=== PATIENT | male | born 1950 | race Caucasian/White ===

== ENCOUNTER 2016-05-22 12:35 | Inpatient (IN) | payer OTHER ==
[2016-05-22] MEDS ORDERED: NS 1000 ML 1,000 ML ONE (12:53)
[2016-05-22] MEDS ORDERED: NS 1000 ML 1,000 ML IV ONE (13:15)
[2016-05-22] MEDS ORDERED: ZOFRAN INJ 4 MG VIAL IVP ONE (13:26)
--- NOTE | 2016-05-22 13:28 | DR.GENAD ---
HPI - PCP Primary Care Physician: OUT OF TOWN - HPI Comment HPI Comment: 65 y/o with end stage metastatic prostate cancer has not been able to eat in over a week due to n/v and come in w/weakness and feeling poorly; he drove here from [place] after getting home from a bucket list cruise earlier this week and just cannot get to feeling better. He has been going downhill since January and last saw Oncology at [facility] last month where he was told nothing else could be done; he would like to be hydrated and sent home with hospice. - Complaint/Symptoms Chief Complaint:: I THINK I AM DEHYDRATED. HAS NOT ATE FOOD IN ABOUT A WEEK DUE TO NAUSEA Self Treatment fo Chief Complaint: TAKING SIPS OF FLUIDS - Source History Provided: Patient, Family Member - Mode of Arrival Mode of Arrival: Stretcher - Timing Onset of Chief Complaint: 05/20/16 PMH - PMH Past Medical History: Yes Past Medical History: Dyslipidemia, Hypertension Past Medical History Comment: PROSTATE/RECTAL CANCER Past Surgical History: Yes Past Surgical History Comment: PORT CATH TO RIGHT CW AND DRAIN TO RIGHT SIDE OF ABD - Family History History of Family Medical Conditions: Yes Family Medical History: Diabetes Mellitus, Cancer, [place], Coronary Artery Disease, Heart Failure, Sudden Cardiac , Hypertension - Social History Type of Tobacco Use: None Does any household member use tobacco: No Alcohol Use: None Do you use any recreational Drugs:: No Lives With: Alone Lives Where: Home - infectious screening In the last 2 months have you had wt loss of >10#?: NO Have you had fever, night sweats or hemotysis?: No Have you traveled outside the country in the last 6 months?: No Isolation: Standard ROS - Review of Systems Constitutional: Malaise, Weakness, Fatigue, Loss of Appetite Eyes: No Symptoms Reported ENTM: No Symptoms Reported Respiratoy: No Symptoms Reported Cardiovascular: No Symptoms Reported Gastrointestinal/Abdominal: See HPI Genitourinary: No Symptoms Reported Neurological: No Symptoms Reported Musculoskeletal: No Symptoms Reported Integumentary: No Symptoms Reported Hematologic/Lymphatic: No Symptoms Reported Endocrine: No Symptoms Reported PE - Vital Signs Vitals: Temperature 98.6 F Pulse Rate [Left] 99 Pulse Rate 98 Respiratory Rate 14 Blood Pressure [Right Arm] 112/71 Blood Pressure [Left Arm] 110/69 Blood Pressure 111/74 O2 Sat by Pulse Oximetry 97 - General Limitations: No Limitations General Appearance: Alert, In No Apparent Distress - ENT ENT Exam: Mucous Membranes Moist - Neck Neck Exam: Normal Inspection, Full ROM - Chest Chest Inspection: Normal Inspection - Respiratory Respiratory Exam: Normal Lung Sounds Bilat Respiratory Exam: Bilateral Clear to Auscultation - Cardiovascular Cardiovascular Exam: Regular Rate - Abdominal Exam Abdominal Exam: Normal Inspection, Normal Bowel Sounds, Soft - Extremities Extremities Exam: Normal Inspection - Neurologic Neurological Exam: Alert, Oriented X3, CN II-XII Intact - Psychiatric Psychiatric Exam: Flat Affect - Skin Skin Exam: Warm, Dry Course - Reevaluation 1st: Improved ROR - Labs Reviewed Result Diagrams: 05/24/16 05:26 05/24/16 05:26 Laboratory: WBC 15.5 X10^3/uL (3.6-10.0) H 05/22/16 13:08 RBC 3.96 X10^6/uL (4.7-6.0) L 05/22/16 13:08 Hgb 11.7 g/dL (13.5-18.0) L 05/22/16 13:08 Hct 34.7 % (42.0-54.0) L 05/22/16 13:08 MCV 87.7 fL (80.0-100.0) 05/22/16 13:08 MCH 29.6 pg (27.0-34.0) 05/22/16 13:08 MCHC 33.7 g/dL (33.0-35.0) 05/22/16 13:08 RDW 18.7 % (11.6-16.5) H 05/22/16 13:08 Plt Count 232 X10^3/uL (150.0-450.0) 05/22/16 13:08 MPV 8.3 fL (7.4-11.0) 05/22/16 13:08 Neut % 76.4 % (42.0-75.0) H 05/22/16 13:08 Lymph % 19.0 % (21.0-51.0) L 05/22/16 13:08 [place] % 4.5 % (0.0-13.0) 05/22/16 13:08 Eos % 0.1 % (0.9-2.9) L 05/22/16 13:08 Baso % 0 % (0.2-1.0) L 05/22/16 13:08 Neut # 11.9 x10^3/uL (2.2-4.8) H 05/22/16 13:08 Lymph # 3.0 X10^3/uL (1.3-2.9) H 05/22/16 13:08 [place] # 0.7 x10^3/uL (0.3-0.8) 05/22/16 13:08 Eos # 0.0 x10^3/uL (0.0-0.2) 05/22/16 13:08 Baso # 0.0 X10^3/uL (0.0-0.1) 05/22/16 13:08 Absolute Nucleated RBC 0.1 /100WBC 05/22/16 13:08 Sodium 130 mmol/L (136-145) L 05/22/16 13:08 Corrected Sodium TNP 05/22/16 13:08 Potassium 6.4 mmol/L (3.5-5.1) H* 05/22/16 13:08 Chloride 98 mmol/L (98-107) 05/22/16 13:08 Carbon Dioxide 18.2 mmol/L (21-32) L 05/22/16 13:08 BUN 63 mg/dL (7-18) H 05/22/16 13:08 Creatinine 3.47 mg/dL (0.70-1.30) H 05/22/16 13:08 Est GFR (MDRD) Af Amer 23 (>60) L 05/22/16 13:08 Est GFR (MDRD) Non-Af 19 (>60) L 05/22/16 13:08 Glucose 99 mg/dL (65-99) 05/22/16 13:08 Calcium 8.2 mg/dL (8.5-10.1) L 05/22/16 13:08 Corrected Calcium 9.8 mg/dL (8.5-10.1) 05/22/16 13:08 Total Bilirubin 0.30 mg/dL (0.2-1.0) 05/22/16 13:08 AST 21 Units/L (15-37) 05/22/16 13:08 ALT 11 Units/L (12-78) L 05/22/16 13:08 Alkaline Phosphatase 137 Units/L (46-116) H 05/22/16 13:08 Total Protein 5.8 g/dL (6.4-8.2) L 05/22/16 13:08 Albumin 2.0 g/dL (3.4-5.0) L 05/22/16 13:08 Globulin 3.8 g/dL (2.5-4.5) 05/22/16 13:08 Albumin/Globulin Ratio 0.5 Ratio (1.1-2.1) L 05/22/16 13:08 - Diagnosis Discharge Problem: Dehydration, Hyperkalemia, Prostate cancer metastatic to large intestine ARF (acute renal failure) Qualifiers: Acute renal failure type: unspecified Qualified Code(s): N17.9 - Acute kidney failure, unspecified - Discharge Plan Disposition: ADMITTED INPATIENT Condition: Stable - Follow ups/Referrals - Instructions
[2016-05-22] MEDS ORDERED: ZOFRAN INJ 4 MG VIAL ONE (13:29)
[2016-05-22 13:40] LABS: BASOPHILS % (AUTO) 0 % (0.2-1.0); EOSINOPHILS % (AUTO) 0.1 % (0.9-2.9); HEMATOCRIT 34.7 % (42.0-54.0); HEMOGLOBIN 11.7 g/dL (13.5-18.0); MEAN CORPUSCULAR HEMOGLOBIN 29.6 pg (27.0-34.0); MEAN CORPUSCULAR HGB CONC 33.7 g/dL (33.0-35.0); MEAN CORPUSCULAR VOLUME 87.7 fL (80.0-100.0); MEAN PLATELET VOLUME 8.3 fL (7.4-11.0); MONOCYTES # (AUTO) 0.7 x10^3/uL (0.3-0.8); MONOCYTES % (AUTO) 4.5 % (0.0-13.0); NEUTROPHILS # (AUTO) 11.9 x10^3/uL (2.2-4.8); NEUTROPHILS % (AUTO) 76.4 % (42.0-75.0); PLATELET COUNT 232 X10^3/uL (150.0-450.0); RED BLOOD COUNT 3.96 X10^6/uL (4.7-6.0); RED CELL DISTRIBUTION WIDTH 18.7 % (11.6-16.5); WHITE BLOOD COUNT 15.5 X10^3/uL (3.6-10.0)
[2016-05-22 13:43] LABS: BLOOD UREA NITROGEN 63 mg/dL (7-18); CALCIUM 8.2 mg/dL (8.5-10.1); CARBON DIOXIDE 18.2 mmol/L (21-32); CHLORIDE 98 mmol/L (98-107); CREATININE 3.47 mg/dL (0.70-1.30); GLUCOSE 99 mg/dL (65-99); SODIUM 130 mmol/L (136-145); eGFR BLACK RACES 23 (>60); eGFR NON BLACK RACES 19 (>60)
[2016-05-22 13:48] LABS: ALANINE AMINOTRANSFERASE 11 Units/L (12-78); ALKALINE PHOSPHATASE 137 Units/L (46-116); ASPARTATE AMINO TRANSFERASE 21 Units/L (15-37); COR CA(FOR HYPOALB) 9.8 mg/dL (8.5-10.1); TOTAL PROTEIN 5.8 g/dL (6.4-8.2)
[2016-05-22] MEDS ORDERED: KAYEXALATE PO ONE (14:23)
[2016-05-22] MEDS ORDERED: DEMEROL INJ IVP PRN (15:51)
[2016-05-22] MEDS: ZOFRAN INJ 4 MG VIAL IVP PRN (17:34)
[2016-05-22] MEDS: NS 1000 ML 1,000 ML IV SCH ×2 (17:36→23:57)
[2016-05-23 06:05] LABS: BASOPHILS % (AUTO) 0.2 % (0.2-1.0); EOSINOPHILS # (AUTO) 0.1 x10^3/uL (0.0-0.2); EOSINOPHILS % (AUTO) 0.6 % (0.9-2.9); HEMATOCRIT 30.9 % (42.0-54.0); HEMOGLOBIN 10.6 g/dL (13.5-18.0); LYMPHOCYTES # (AUTO) 2.1 X10^3/uL (1.3-2.9); MEAN CORPUSCULAR HEMOGLOBIN 30.3 pg (27.0-34.0); MEAN CORPUSCULAR HGB CONC 34.3 g/dL (33.0-35.0); MEAN CORPUSCULAR VOLUME 88.3 fL (80.0-100.0); MEAN PLATELET VOLUME 8.4 fL (7.4-11.0); MONOCYTES # (AUTO) 0.6 x10^3/uL (0.3-0.8); MONOCYTES % (AUTO) 5.2 % (0.0-13.0); NEUTROPHILS # (AUTO) 9.3 x10^3/uL (2.2-4.8); PLATELET COUNT 186 X10^3/uL (150.0-450.0); RED CELL DISTRIBUTION WIDTH 18.3 % (11.6-16.5); WHITE BLOOD COUNT 12.1 X10^3/uL (3.6-10.0)
[2016-05-23 06:07] LABS: ALANINE AMINOTRANSFERASE 11 Units/L (12-78); ALBUMIN 1.6 g/dL (3.4-5.0); ALKALINE PHOSPHATASE 129 Units/L (46-116); ASPARTATE AMINO TRANSFERASE 23 Units/L (15-37); BLOOD UREA NITROGEN 60 mg/dL (7-18); CALCIUM 7.6 mg/dL (8.5-10.1); CARBON DIOXIDE 17.6 mmol/L (21-32); CHLORIDE 101 mmol/L (98-107); COR CA(FOR HYPOALB) 9.5 mg/dL (8.5-10.1); CREATININE 3.02 mg/dL (0.70-1.30); GLUCOSE 102 mg/dL (65-99); SODIUM 130 mmol/L (136-145); eGFR BLACK RACES 27 (>60); eGFR NON BLACK RACES 22 (>60)
[2016-05-23] MEDS ORDERED: BUTT CREAM (COMPOUND) ONE (09:56)
[2016-05-23] MEDS ORDERED: NYSTATIN POWDER ONE (09:57)
[2016-05-23] MEDS: ZOFRAN INJ 4 MG VIAL IVP PRN ×2 (12:31→16:36)
[2016-05-23] MEDS: NS 1000 ML 1,000 ML IV SCH (12:36)
[2016-05-23] MEDS: BUTT CREAM (COMPOUND) TOP SCH ×2 (14:30→21:00)
[2016-05-23] MEDS ORDERED: NS 1000 ML 1,000 ML IV ONE (14:33)
[2016-05-23] MEDS: NYSTATIN POWDER TOP SCH (21:00)
[2016-05-24] MEDS: NS 1000 ML 1,000 ML IV PRN ×2 (02:04→20:28)
[2016-05-24 06:22] LABS: BASOPHILS % (AUTO) 0.2 % (0.2-1.0); EOSINOPHILS # (AUTO) 0.1 x10^3/uL (0.0-0.2); EOSINOPHILS % (AUTO) 0.8 % (0.9-2.9); HEMOGLOBIN 10.4 g/dL (13.5-18.0); LYMPHOCYTES # (AUTO) 1.9 X10^3/uL (1.3-2.9); LYMPHOCYTES % (AUTO) 18.5 % (21.0-51.0); MEAN CORPUSCULAR HEMOGLOBIN 30.8 pg (27.0-34.0); MEAN CORPUSCULAR HGB CONC 34.6 g/dL (33.0-35.0); MEAN CORPUSCULAR VOLUME 88.9 fL (80.0-100.0); MEAN PLATELET VOLUME 8.3 fL (7.4-11.0); MONOCYTES # (AUTO) 0.5 x10^3/uL (0.3-0.8); MONOCYTES % (AUTO) 5.1 % (0.0-13.0); NEUTROPHILS # (AUTO) 7.6 x10^3/uL (2.2-4.8); NEUTROPHILS % (AUTO) 75.4 % (42.0-75.0); PLATELET COUNT 177 X10^3/uL (150.0-450.0); RED BLOOD COUNT 3.38 X10^6/uL (4.7-6.0); RED CELL DISTRIBUTION WIDTH 19.5 % (11.6-16.5)
[2016-05-24 06:24] LABS: ALANINE AMINOTRANSFERASE 9 Units/L (12-78); ALBUMIN 1.5 g/dL (3.4-5.0); ALKALINE PHOSPHATASE 142 Units/L (46-116); ASPARTATE AMINO TRANSFERASE 21 Units/L (15-37); BLOOD UREA NITROGEN 51 mg/dL (7-18); CALCIUM 7.5 mg/dL (8.5-10.1); CARBON DIOXIDE 15.7 mmol/L (21-32); CHLORIDE 101 mmol/L (98-107); COR CA(FOR HYPOALB) 9.5 mg/dL (8.5-10.1); CREATININE 2.55 mg/dL (0.70-1.30); GLUCOSE 95 mg/dL (65-99); SODIUM 129 mmol/L (136-145); TOTAL PROTEIN 4.7 g/dL (6.4-8.2); eGFR BLACK RACES 33 (>60); eGFR NON BLACK RACES 27 (>60)
[2016-05-24] MEDS: BUTT CREAM (COMPOUND) TOP SCH ×3 (06:34→21:00)
[2016-05-24 09:47] VITALS: BMI 25.9
[2016-05-24] MEDS: ZOFRAN INJ 4 MG VIAL IVP PRN ×2 (10:07→23:28)
[2016-05-24] MEDS: NYSTATIN POWDER TOP SCH ×2 (10:08→21:00)
--- NOTE | 2016-05-24 11:09 | RAD ---
HISTORY: Dehydration Study: AP chest obtained 6:06 a.m. Comparison: Findings: Right subcutaneous injection port overlies the right upper lung field tip of the catheter is at the junction of the superior vena cava and right atrium. A left lower lobe lung mass measures 2.2 cm in diameter. Possible right lower lung mass measuring 1.5 cm in diameter. The trachea is midline . Ther e is no widening or shift of mediastinum. The cardiac silhouette appears within normal limits. The c ostophrenic angles are sharp and both diaphragms are adequately maintained. The lungs are adequately aerated. Osseous structures are within normal limits for the patient's age There is no evidence of active inflammatory disease. IMPRESSION: 1. Heart normal size bilateral lower lobe lung masses. Right subcutaneous injection port catheter ti p in adequate position. No evidence of pneumonia . Reported By:
[2016-05-25] MEDS: BUTT CREAM (COMPOUND) TOP SCH ×3 (05:26→21:08)
[2016-05-25 06:32] LABS: BASOPHILS % (AUTO) 0.3 % (0.2-1.0); EOSINOPHILS # (AUTO) 0.1 x10^3/uL (0.0-0.2); EOSINOPHILS % (AUTO) 0.9 % (0.9-2.9); HEMATOCRIT 30.2 % (42.0-54.0); HEMOGLOBIN 10.3 g/dL (13.5-18.0); LYMPHOCYTES # (AUTO) 1.4 X10^3/uL (1.3-2.9); LYMPHOCYTES % (AUTO) 15.8 % (21.0-51.0); MEAN CORPUSCULAR HEMOGLOBIN 30.4 pg (27.0-34.0); MEAN CORPUSCULAR HGB CONC 34.1 g/dL (33.0-35.0); MONOCYTES # (AUTO) 0.5 x10^3/uL (0.3-0.8); MONOCYTES % (AUTO) 5.8 % (0.0-13.0); NEUTROPHILS # (AUTO) 6.8 x10^3/uL (2.2-4.8); NEUTROPHILS % (AUTO) 77.2 % (42.0-75.0); PLATELET COUNT 170 X10^3/uL (150.0-450.0); RED CELL DISTRIBUTION WIDTH 20.3 % (11.6-16.5); WHITE BLOOD COUNT 8.8 X10^3/uL (3.6-10.0)
[2016-05-25 06:36] LABS: BLOOD UREA NITROGEN 45 mg/dL (7-18); CARBON DIOXIDE 16.3 mmol/L (21-32); CHLORIDE 101 mmol/L (98-107); CREATININE 2.44 mg/dL (0.70-1.30); GLUCOSE 107 mg/dL (65-99); SODIUM 128 mmol/L (136-145); eGFR BLACK RACES 34 (>60); eGFR NON BLACK RACES 28 (>60)
[2016-05-25 06:37] LABS: ALANINE AMINOTRANSFERASE 10 Units/L (12-78); ALBUMIN 1.5 g/dL (3.4-5.0); ALKALINE PHOSPHATASE 153 Units/L (46-116); ASPARTATE AMINO TRANSFERASE 20 Units/L (15-37); CALCIUM 7.5 mg/dL (8.5-10.1); COR CA(FOR HYPOALB) 9.5 mg/dL (8.5-10.1); TOTAL PROTEIN 4.6 g/dL (6.4-8.2)
[2016-05-25 06:59] LABS: ANISOCYTOSIS 1+; PLATELET MORPHOLOGY COMMENT NORMAL (NORMAL)
[2016-05-25] MEDS: ZOFRAN INJ 4 MG VIAL IVP PRN ×3 (07:52→15:40)
[2016-05-25] MEDS: NYSTATIN POWDER TOP SCH ×2 (10:38→21:08)
--- NOTE | 2016-05-25 10:47 | DR.H&P ---
H&P - History & Physical for Day of: H&P Date: 05/22/16 - Chief Complaint Chief Complaint: intractable nausea and vomiting, generalized weakness - Allergies Allergies/Adverse Reactions: Allergies Allergy/AdvReac Type Severity Reaction Status Date / Time Hydralazine Allergy Verified 05/22/16 12:43 Penicillins Allergy Verified 05/22/16 12:43 - History of Present Illness History of Present Illness: The patient is a 65-year-old white male who presented to the [facility] emergency room complaining of marked generalized weakness and intractable nausea and vomiting. Patient has a history of metastatic prostate cancer as well as metastatic colorectal cancer. The patient's clinical status has been markedly declining over the last several weeks. Patient has previously completed chemotherapy and states that his oncology physicians have told him that there was no further treatments for his condition and that he is considered to be terminal. The patient just got back from a cruise which she attempted to go on with family members and apparently was getting very sick even before departure and reportedly stayed in his cabin with very little by mouth intake throughout the cruise. The patient was noted to have a markedly elevated BUN/creatinine as well as hyperkalemia. 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 Patient's subsequent been admitted for further workup. - Past Medical History Past Medical History: Dyslipidemia, Hypertension Additional Medical History: 1. End-stage, metastatic colorectal cancer. 2. Metastatic prostate cancer - Family History Family Medical History: Diabetes Mellitus, Cancer, [place], Coronary Artery Disease, Heart Failure, Sudden Cardiac , Hypertension - Social History Does patient currently use any type of tobacco product: No Have you used tobacco products in the last 12 months: No Type of Tobacco Use: None Does any household member use tobacco: No Alcohol Use: None Drug Use: None - Review of Systems Constitutional: See HPI Eyes: No Symptoms Reported ENT: No Symptoms Reported Respiratory: No Symptoms Reported Cardiovascular: No Symptoms Reported Gastrointestinal: See HPI Genitourinary: No Symptoms Reported Musculoskeletal: No Symptoms Reported Skin: No Symptoms Reported - Physical Exam Vital Signs: Temperature 97.5 F Pulse Rate [Right Brachial] 92 Pulse Rate [Left] 91 Respiratory Rate 19 Blood Pressure [Right Arm] 107/74 Blood Pressure [Left Arm] 95/59 O2 Sat by Pulse Oximetry 92 Oriented: Normal Eyes: Normal Ear: Normal Nose: Normal Throat: Normal Respiratory: Clear Throughout Cardiovascular: Normal : Normal Auscultation: Bowel Sounds: Normal Palpation: Other (distended, consistent with ascites) Tenderness: Diffuse Skin: Normal Musculoskeletal: Normal Psychiatric: Depression Mood Description: Withdrawn Speech Pattern: Clear - Assessment/Plan (1) ARF (acute renal failure) Qualifiers: Acute renal failure type: unspecified Qualified Code(s): N17.9 - Acute kidney failure, unspecified Status: Acute Plan: 1. Admit for further workup. 2. Kayexalate as ordered. 3. Aggressive IV fluid hydration. 4. Continue current IV antibiotics. 5. Continue daily paracentesis drainage as per home regimen. 6. Continue home medications. 7. Blood cultures 2 from separate sites. 8. UA C&S. 9. Ascitic fluid for Gram stain, [employer]. 10. Advance diet as tolerated. 11. Repeat CMP and CBC in a.m. 12. Further orders to chart (2) Hyperkalemia Status: Acute Plan: As above. (3) Dehydration Status: Acute Plan: As above. (4) Metastatic colorectal cancer Status: Acute Plan: As above. (5) Prostate cancer metastatic to intrapelvic lymph node Status: Acute Plan: As above. (6) Malignant ascites Status: Acute Plan: As above.
--- NOTE | 2016-05-25 10:58 | PCM.PROG ---
Progress Note - Progress Note for Day of Date: 05/23/16 - Subjective Subjective: The patient is a 65-year-old white male who was admitted to be [facility] a 05/22/2016 secondary to intractable nausea and vomiting, profound dehydration with acute renal failure and hyperkalemia. Patient states that his symptoms have minimally improved since admission. Patient continues to complain of severe nausea. Should be noted that the patient has metastatic prostate cancer, and end-stage metastatic colorectal cancer which has been determined to be terminal with no further treatment recommended. - Past Medical Family Social History Past Med/Fam/Surg Hx: No changes since H&P Allergies: Allergies Hydralazine Allergy (Verified 05/22/16 12:43) Penicillins Allergy (Verified 05/22/16 12:43) - Review of Systems ROS: No change since H&P - Vital Signs and I&O's Vital Signs: Temperature 97.5 F Pulse Rate [Right Brachial] 92 Pulse Rate [Left] 91 Respiratory Rate 19 Blood Pressure [Right Arm] 107/74 Blood Pressure [Left Arm] 95/59 O2 Sat by Pulse Oximetry 92 Intake and Output: Intake & Output 05/22/16 05/23/16 05/24/16 05/25/16 11:59 11:59 11:59 11:59 Intake Total 1741 2145 1320 Output Total 450 1800 Balance 1741 1695 -480 - Physical Exam Oriented: Normal Eyes: Normal Ear: Normal Nose: Normal Throat: Normal Respiratory: Normal Cardiovascular: Normal : Normal Auscultation: Bowel Sounds: Normal Tenderness: Diffuse Skin: Normal Musculoskeletal: Normal Psychiatric: Depression Mood Description: Withdrawn Affect: Flat Speech Pattern: Clear - Laboratory and Diagnostics Result Diagrams: 05/25/16 06:00 05/25/16 06:00 Labs: 05/23/16 10:44 Peritoneal Fluid Gram Stain - Final Laboratory WBC 8.8 X10^3/uL (3.6-10.0) 05/25/16 06:00 RBC 3.40 X10^6/uL (4.7-6.0) L 05/25/16 06:00 Hgb 10.3 g/dL (13.5-18.0) L 05/25/16 06:00 Hct 30.2 % (42.0-54.0) L 05/25/16 06:00 MCV 89.0 fL (80.0-100.0) 05/25/16 06:00 MCH 30.4 pg (27.0-34.0) 05/25/16 06:00 MCHC 34.1 g/dL (33.0-35.0) 05/25/16 06:00 RDW 20.3 % (11.6-16.5) H 05/25/16 06:00 Plt Count 170 X10^3/uL (150.0-450.0) 05/25/16 06:00 Plt Count Comment Adequate (ADEQUATE) 05/25/16 06:00 MPV 8.0 fL (7.4-11.0) 05/25/16 06:00 Neut % 77.2 % (42.0-75.0) H 05/25/16 06:00 Lymph % 15.8 % (21.0-51.0) L 05/25/16 06:00 [place] % 5.8 % (0.0-13.0) 05/25/16 06:00 Eos % 0.9 % (0.9-2.9) 05/25/16 06:00 Baso % 0.3 % (0.2-1.0) 05/25/16 06:00 Neut # 6.8 x10^3/uL (2.2-4.8) H 05/25/16 06:00 Lymph # 1.4 X10^3/uL (1.3-2.9) 05/25/16 06:00 [place] # 0.5 x10^3/uL (0.3-0.8) 05/25/16 06:00 Eos # 0.1 x10^3/uL (0.0-0.2) 05/25/16 06:00 Baso # 0.0 X10^3/uL (0.0-0.1) 05/25/16 06:00 Absolute Nucleated RBC 0.0 /100WBC 05/25/16 06:00 Plt Morphology Comment Normal (NORMAL) 05/25/16 06:00 RBC Morphology Abnormal (NORMAL) 05/25/16 06:00 Anisocytosis 1+ A 05/25/16 06:00 Sodium 128 mmol/L (136-145) L 05/25/16 06:00 Corrected Sodium TNP 05/25/16 06:00 Potassium 5.1 mmol/L (3.5-5.1) 05/25/16 06:00 Chloride 101 mmol/L (98-107) 05/25/16 06:00 Carbon Dioxide 16.3 mmol/L (21-32) L 05/25/16 06:00 BUN 45 mg/dL (7-18) H 05/25/16 06:00 Creatinine 2.44 mg/dL (0.70-1.30) H 05/25/16 06:00 Est GFR (MDRD) Af Amer 34 (>60) L 05/25/16 06:00 Est GFR (MDRD) Non-Af 28 (>60) L 05/25/16 06:00 Glucose 107 mg/dL (65-99) H 05/25/16 06:00 Calcium 7.5 mg/dL (8.5-10.1) L 05/25/16 06:00 Corrected Calcium 9.5 mg/dL (8.5-10.1) 05/25/16 06:00 Total Bilirubin 0.20 mg/dL (0.2-1.0) 05/25/16 06:00 AST 20 Units/L (15-37) 05/25/16 06:00 ALT 10 Units/L (12-78) L 05/25/16 06:00 Alkaline Phosphatase 153 Units/L (46-116) H 05/25/16 06:00 Total Protein 4.6 g/dL (6.4-8.2) L 05/25/16 06:00 Albumin 1.5 g/dL (3.4-5.0) L 05/25/16 06:00 Globulin 3.1 g/dL (2.5-4.5) 05/25/16 06:00 Albumin/Globulin Ratio 0.5 Ratio (1.1-2.1) L 05/25/16 06:00 - Plan (1) ARF (acute renal failure) Status: Acute Qualifiers: Acute renal failure type: unspecified Qualified Code(s): N17.9 - Acute kidney failure, unspecified Plan: 1. CMP and CBC today. 2. D/C Kayexalate. 3. Aggressive IV fluid hydration. 4. Continue current IV antibiotics. 5. Continue daily paracentesis drainage as per home regimen. 6. Continue home medications. 7. Blood cultures 2 from separate sites pending. 8. UA C&S pending. 9. Ascitic fluid for Gram stain, [employer]. 10. Advance diet as tolerated. 11. Repeat CMP and CBC in a.m. 12. Further orders to chart (2) Hyperkalemia Status: Acute Plan: As above. (3) Dehydration Status: Acute Plan: As above. (4) Metastatic colorectal cancer Status: Acute Plan: As above. (5) Prostate cancer metastatic to intrapelvic lymph node Status: Acute Plan: As above. (6) Malignant ascites Status: Acute Plan: As above.
--- NOTE | 2016-05-25 11:01 | PCM.PROG ---
Progress Note - Progress Note for Day of Date: 05/24/16 - Subjective Subjective: The patient is a 65-year-old white male who was admitted to be [facility] a 05/22/2016 secondary to intractable nausea and vomiting, profound dehydration with acute renal failure and hyperkalemia. Patient states that his symptoms have minimally improved since admission. Patient continues to complain of severe nausea which has minimally improved. Should be noted that the patient has metastatic prostate cancer, and end-stage metastatic colorectal cancer which has been determined to be terminal with no further treatment recommended. - Past Medical Family Social History Past Med/Fam/Surg Hx: No changes since H&P Allergies: Allergies Hydralazine Allergy (Verified 05/22/16 12:43) Penicillins Allergy (Verified 05/22/16 12:43) - Review of Systems ROS: No change since H&P - Vital Signs and I&O's Vital Signs: Temperature 97.5 F Pulse Rate [Right Brachial] 92 Pulse Rate [Left] 91 Respiratory Rate 19 Blood Pressure [Right Arm] 107/74 Blood Pressure [Left Arm] 95/59 O2 Sat by Pulse Oximetry 92 Intake and Output: Intake & Output 05/22/16 05/23/16 05/24/16 05/25/16 11:59 11:59 11:59 11:59 Intake Total 1741 2145 1320 Output Total 450 1800 Balance 1741 1695 -480 - Physical Exam Oriented: Normal Eyes: Normal Ear: Normal Nose: Normal Throat: Normal Respiratory: Normal Cardiovascular: Normal : Normal Auscultation: Bowel Sounds: Normal Tenderness: Diffuse Skin: Normal Musculoskeletal: Normal Psychiatric: Depression Mood Description: Withdrawn Affect: Flat Speech Pattern: Clear - Laboratory and Diagnostics Result Diagrams: 05/25/16 06:00 05/25/16 06:00 Labs: 05/23/16 10:44 Peritoneal Fluid Gram Stain - Final Laboratory WBC 8.8 X10^3/uL (3.6-10.0) 05/25/16 06:00 RBC 3.40 X10^6/uL (4.7-6.0) L 05/25/16 06:00 Hgb 10.3 g/dL (13.5-18.0) L 05/25/16 06:00 Hct 30.2 % (42.0-54.0) L 05/25/16 06:00 MCV 89.0 fL (80.0-100.0) 05/25/16 06:00 MCH 30.4 pg (27.0-34.0) 05/25/16 06:00 MCHC 34.1 g/dL (33.0-35.0) 05/25/16 06:00 RDW 20.3 % (11.6-16.5) H 05/25/16 06:00 Plt Count 170 X10^3/uL (150.0-450.0) 05/25/16 06:00 Plt Count Comment Adequate (ADEQUATE) 05/25/16 06:00 MPV 8.0 fL (7.4-11.0) 05/25/16 06:00 Neut % 77.2 % (42.0-75.0) H 05/25/16 06:00 Lymph % 15.8 % (21.0-51.0) L 05/25/16 06:00 [place] % 5.8 % (0.0-13.0) 05/25/16 06:00 Eos % 0.9 % (0.9-2.9) 05/25/16 06:00 Baso % 0.3 % (0.2-1.0) 05/25/16 06:00 Neut # 6.8 x10^3/uL (2.2-4.8) H 05/25/16 06:00 Lymph # 1.4 X10^3/uL (1.3-2.9) 05/25/16 06:00 [place] # 0.5 x10^3/uL (0.3-0.8) 05/25/16 06:00 Eos # 0.1 x10^3/uL (0.0-0.2) 05/25/16 06:00 Baso # 0.0 X10^3/uL (0.0-0.1) 05/25/16 06:00 Absolute Nucleated RBC 0.0 /100WBC 05/25/16 06:00 Plt Morphology Comment Normal (NORMAL) 05/25/16 06:00 RBC Morphology Abnormal (NORMAL) 05/25/16 06:00 Anisocytosis 1+ A 05/25/16 06:00 Sodium 128 mmol/L (136-145) L 05/25/16 06:00 Corrected Sodium TNP 05/25/16 06:00 Potassium 5.1 mmol/L (3.5-5.1) 05/25/16 06:00 Chloride 101 mmol/L (98-107) 05/25/16 06:00 Carbon Dioxide 16.3 mmol/L (21-32) L 05/25/16 06:00 BUN 45 mg/dL (7-18) H 05/25/16 06:00 Creatinine 2.44 mg/dL (0.70-1.30) H 05/25/16 06:00 Est GFR (MDRD) Af Amer 34 (>60) L 05/25/16 06:00 Est GFR (MDRD) Non-Af 28 (>60) L 05/25/16 06:00 Glucose 107 mg/dL (65-99) H 05/25/16 06:00 Calcium 7.5 mg/dL (8.5-10.1) L 05/25/16 06:00 Corrected Calcium 9.5 mg/dL (8.5-10.1) 05/25/16 06:00 Total Bilirubin 0.20 mg/dL (0.2-1.0) 05/25/16 06:00 AST 20 Units/L (15-37) 05/25/16 06:00 ALT 10 Units/L (12-78) L 05/25/16 06:00 Alkaline Phosphatase 153 Units/L (46-116) H 05/25/16 06:00 Total Protein 4.6 g/dL (6.4-8.2) L 05/25/16 06:00 Albumin 1.5 g/dL (3.4-5.0) L 05/25/16 06:00 Globulin 3.1 g/dL (2.5-4.5) 05/25/16 06:00 Albumin/Globulin Ratio 0.5 Ratio (1.1-2.1) L 05/25/16 06:00 - Plan (1) ARF (acute renal failure) Status: Acute Qualifiers: Acute renal failure type: unspecified Qualified Code(s): N17.9 - Acute kidney failure, unspecified Plan: 1. CMP and CBC today. 2. Advance diet as tolerated. 3. Aggressive IV fluid hydration. 4. Continue current IV antibiotics. 5. Continue daily paracentesis drainage as per home regimen. 6. Continue home medications. 7. Blood cultures 2 from separate sites pending. 8. UA C&S pending. 9. Ascitic fluid for Gram stain, [employer]. 10. Repeat CMP and CBC in a.m. 11. Further orders to chart (2) Hyperkalemia Status: Acute Plan: As above. (3) Dehydration Status: Acute Plan: As above. (4) Metastatic colorectal cancer Status: Acute Plan: As above. (5) Prostate cancer metastatic to intrapelvic lymph node Status: Acute Plan: As above. (6) Malignant ascites Status: Acute Plan: As above.
[2016-05-25] MEDS ORDERED: PHENERGAN INJ 25 MG IV PRN (16:50)
[2016-05-26] MEDS: BUTT CREAM (COMPOUND) TOP SCH ×3 (05:54→22:55)
[2016-05-26] MEDS: NS 1000 ML 1,000 ML IV PRN (05:55)
[2016-05-26 06:19] LABS: BASOPHILS % (AUTO) 0.2 % (0.2-1.0); EOSINOPHILS # (AUTO) 0.1 x10^3/uL (0.0-0.2); EOSINOPHILS % (AUTO) 1.1 % (0.9-2.9); HEMATOCRIT 32.5 % (42.0-54.0); HEMOGLOBIN 11.1 g/dL (13.5-18.0); LYMPHOCYTES # (AUTO) 1.9 X10^3/uL (1.3-2.9); LYMPHOCYTES % (AUTO) 18.5 % (21.0-51.0); MEAN CORPUSCULAR HEMOGLOBIN 30.6 pg (27.0-34.0); MEAN CORPUSCULAR HGB CONC 34.1 g/dL (33.0-35.0); MEAN CORPUSCULAR VOLUME 89.6 fL (80.0-100.0); MONOCYTES # (AUTO) 0.5 x10^3/uL (0.3-0.8); MONOCYTES % (AUTO) 5.4 % (0.0-13.0); NEUTROPHILS # (AUTO) 7.5 x10^3/uL (2.2-4.8); NEUTROPHILS % (AUTO) 74.8 % (42.0-75.0); PLATELET COUNT 193 X10^3/uL (150.0-450.0); RED BLOOD COUNT 3.62 X10^6/uL (4.7-6.0); RED CELL DISTRIBUTION WIDTH 20.5 % (11.6-16.5)
[2016-05-26 06:31] LABS: ALBUMIN 1.5 g/dL (3.4-5.0); ALKALINE PHOSPHATASE 167 Units/L (46-116); ASPARTATE AMINO TRANSFERASE 21 Units/L (15-37); BLOOD UREA NITROGEN 41 mg/dL (7-18); CALCIUM 7.7 mg/dL (8.5-10.1); CARBON DIOXIDE 16.7 mmol/L (21-32); CHLORIDE 101 mmol/L (98-107); COR CA(FOR HYPOALB) 9.7 mg/dL (8.5-10.1); CREATININE 2.38 mg/dL (0.70-1.30); GLUCOSE 83 mg/dL (65-99); SODIUM 129 mmol/L (136-145); TOTAL PROTEIN 4.9 g/dL (6.4-8.2); eGFR BLACK RACES 35 (>60); eGFR NON BLACK RACES 29 (>60)
[2016-05-26 06:40] LABS: ALANINE AMINOTRANSFERASE 11 Units/L (12-78)
[2016-05-26 06:58] LABS: ANISOCYTOSIS 1+; PLATELET MORPHOLOGY COMMENT NORMAL (NORMAL)
--- NOTE | 2016-05-26 08:56 | PCM.PROG ---
Progress Note - Progress Note for Day of Date: 05/25/16 - Subjective Subjective: The patient is a 65-year-old white male who was admitted to be [facility] a 05/22/2016 secondary to intractable nausea and vomiting, profound dehydration with acute renal failure and hyperkalemia. Patient states that his symptoms have minimally improved since admission. Patient continues to complain of severe nausea which has minimally improved. Should be noted that the patient has metastatic prostate cancer, and end-stage metastatic colorectal cancer which has been determined to be terminal with no further treatment recommended. Pt continues with hyponatremia, will continue IV hydration and symptomatic management - Past Medical Family Social History Past Med/Fam/Surg Hx: No changes since H&P Allergies: Allergies Hydralazine Allergy (Verified 05/22/16 12:43) Penicillins Allergy (Verified 05/22/16 12:43) - Review of Systems ROS: No change since H&P - Vital Signs and I&O's Vital Signs: Temperature 98.3 F Pulse Rate [Right Brachial] 94 Pulse Rate [Left] 111 Respiratory Rate 18 Blood Pressure [Right Arm] 103/67 Blood Pressure [Left Arm] 99/62 O2 Sat by Pulse Oximetry 94 Intake and Output: Intake & Output 05/23/16 05/24/16 05/25/16 05/26/16 11:59 11:59 11:59 11:59 Intake Total 1741 2145 1320 1640 Output Total 450 1800 350 Balance 1741 1695 -480 1290 - Physical Exam Oriented: Normal Eyes: Normal Ear: Normal Nose: Normal Throat: Normal Respiratory: Diminished Cardiovascular: Normal : Normal Auscultation: Bowel Sounds: Normal Tenderness: Diffuse Skin: Normal Musculoskeletal: Normal Psychiatric: Depression Mood Description: Withdrawn Affect: Flat Speech Pattern: Clear - Laboratory and Diagnostics Result Diagrams: 05/26/16 05:40 05/26/16 05:40 Labs: 05/23/16 10:44 Peritoneal Fluid - Preliminary 05/23/16 10:44 Peritoneal Fluid Gram Stain - Final Laboratory WBC 10.0 X10^3/uL (3.6-10.0) 05/26/16 05:40 RBC 3.62 X10^6/uL (4.7-6.0) L 05/26/16 05:40 Hgb 11.1 g/dL (13.5-18.0) L 05/26/16 05:40 Hct 32.5 % (42.0-54.0) L 05/26/16 05:40 MCV 89.6 fL (80.0-100.0) 05/26/16 05:40 MCH 30.6 pg (27.0-34.0) 05/26/16 05:40 MCHC 34.1 g/dL (33.0-35.0) 05/26/16 05:40 RDW 20.5 % (11.6-16.5) H 05/26/16 05:40 Plt Count 193 X10^3/uL (150.0-450.0) 05/26/16 05:40 Plt Count Comment Adequate (ADEQUATE) 05/26/16 05:40 MPV 8.0 fL (7.4-11.0) 05/26/16 05:40 Neut % 74.8 % (42.0-75.0) 05/26/16 05:40 Lymph % 18.5 % (21.0-51.0) L 05/26/16 05:40 [place] % 5.4 % (0.0-13.0) 05/26/16 05:40 Eos % 1.1 % (0.9-2.9) 05/26/16 05:40 Baso % 0.2 % (0.2-1.0) 05/26/16 05:40 Neut # 7.5 x10^3/uL (2.2-4.8) H 05/26/16 05:40 Lymph # 1.9 X10^3/uL (1.3-2.9) 05/26/16 05:40 [place] # 0.5 x10^3/uL (0.3-0.8) 05/26/16 05:40 Eos # 0.1 x10^3/uL (0.0-0.2) 05/26/16 05:40 Baso # 0.0 X10^3/uL (0.0-0.1) 05/26/16 05:40 Absolute Nucleated RBC 0.0 /100WBC 05/26/16 05:40 Plt Morphology Comment Normal (NORMAL) 05/26/16 05:40 RBC Morphology Abnormal (NORMAL) 05/26/16 05:40 Anisocytosis 1+ A 05/26/16 05:40 Sodium 129 mmol/L (136-145) L 05/26/16 05:40 Corrected Sodium TNP 05/26/16 05:40 Potassium 5.3 mmol/L (3.5-5.1) H 05/26/16 05:40 Chloride 101 mmol/L (98-107) 05/26/16 05:40 Carbon Dioxide 16.7 mmol/L (21-32) L 05/26/16 05:40 BUN 41 mg/dL (7-18) H 05/26/16 05:40 Creatinine 2.38 mg/dL (0.70-1.30) H 05/26/16 05:40 Est GFR (MDRD) Af Amer 35 (>60) L 05/26/16 05:40 Est GFR (MDRD) Non-Af 29 (>60) L 05/26/16 05:40 Glucose 83 mg/dL (65-99) 05/26/16 05:40 Calcium 7.7 mg/dL (8.5-10.1) L 05/26/16 05:40 Corrected Calcium 9.7 mg/dL (8.5-10.1) 05/26/16 05:40 Total Bilirubin 0.30 mg/dL (0.2-1.0) 05/26/16 05:40 AST 21 Units/L (15-37) 05/26/16 05:40 ALT 11 Units/L (12-78) L 05/26/16 05:40 Alkaline Phosphatase 167 Units/L (46-116) H 05/26/16 05:40 Total Protein 4.9 g/dL (6.4-8.2) L 05/26/16 05:40 Albumin 1.5 g/dL (3.4-5.0) L 05/26/16 05:40 Globulin 3.4 g/dL (2.5-4.5) 05/26/16 05:40 Albumin/Globulin Ratio 0.4 Ratio (1.1-2.1) L 05/26/16 05:40 - Plan (1) ARF (acute renal failure) Status: Acute Qualifiers: Acute renal failure type: unspecified Qualified Code(s): N17.9 - Acute kidney failure, unspecified Plan: 1. CMP and CBC today. 2. Advance diet as tolerated. 3. Aggressive IV fluid hydration. 4. Continue current IV antibiotics. 5. Continue daily paracentesis drainage as per home regimen. 6. Continue home medications (2) Ascites Status: Acute Qualifiers: Ascites type: A Plan: Continue daily paracentesis drainage as per home regimen (3) Dehydration Status: Acute Plan: As above. (4) Metastatic colorectal cancer Status: Acute Plan: As above. 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
[2016-05-26] MEDS: NYSTATIN POWDER TOP SCH ×2 (09:00→20:58)
[2016-05-26] MEDS: ZOFRAN INJ 4 MG VIAL IVP PRN ×3 (12:00→15:57)
[2016-05-26] MEDS: NEURONTIN CAP 300 MG PO SCH ×2 (15:55→23:08)
[2016-05-26] MEDS ORDERED: LEVSIN ORAL DROPS PO PRN (19:03)
--- NOTE | 2016-05-26 19:05 | PCM.PROG ---
Progress Note - Progress Note for Day of Date: 05/26/16 - Subjective Subjective: The patient is a 65-year-old white male who was admitted to be [facility] a 05/22/2016 secondary to intractable nausea and vomiting, profound dehydration with acute renal failure and hyperkalemia. Patient states that his symptoms have minimally improved since admission. Patient continues to complain of severe nausea which has minimally improved. Should be noted that the patient has metastatic prostate cancer, and end-stage metastatic colorectal cancer which has been determined to be terminal with no further treatment recommended. Pt continues with hyponatremia, will continue IV hydration and symptomatic management. Pt co increase lower extremity cramping today and gas. - Past Medical Family Social History Past Med/Fam/Surg Hx: No changes since H&P Allergies: Allergies Hydralazine Allergy (Verified 05/22/16 12:43) Penicillins Allergy (Verified 05/22/16 12:43) - Review of Systems ROS: No change since H&P - Vital Signs and I&O's Vital Signs: Temperature 98 F Pulse Rate [Right Brachial] 102 Pulse Rate [Left] 111 Respiratory Rate 20 Blood Pressure [Right Arm] 101/73 Blood Pressure [Left Arm] 99/62 O2 Sat by Pulse Oximetry 94 Intake and Output: Intake & Output 05/24/16 05/25/16 05/26/16 05/27/16 11:59 11:59 11:59 11:59 Intake Total 2145 1320 1640 240 Output Total 450 1800 350 200 Balance 1695 -480 1290 40 - Physical Exam Oriented: Normal Eyes: Normal Ear: Normal Nose: Normal Throat: Normal Respiratory: Diminished Cardiovascular: Normal : Normal Auscultation: Bowel Sounds: Normal Tenderness: Diffuse Skin: Decreased Turgur Musculoskeletal: Leg Psychiatric: Depression Mood Description: Withdrawn Affect: Flat Speech Pattern: Clear - Laboratory and Diagnostics Result Diagrams: 05/26/16 05:40 05/26/16 05:40 Labs: 05/23/16 10:44 Peritoneal Fluid - Preliminary 05/23/16 10:44 Peritoneal Fluid Gram Stain - Final Laboratory WBC 10.0 X10^3/uL (3.6-10.0) 05/26/16 05:40 RBC 3.62 X10^6/uL (4.7-6.0) L 05/26/16 05:40 Hgb 11.1 g/dL (13.5-18.0) L 05/26/16 05:40 Hct 32.5 % (42.0-54.0) L 05/26/16 05:40 MCV 89.6 fL (80.0-100.0) 05/26/16 05:40 MCH 30.6 pg (27.0-34.0) 05/26/16 05:40 MCHC 34.1 g/dL (33.0-35.0) 05/26/16 05:40 RDW 20.5 % (11.6-16.5) H 05/26/16 05:40 Plt Count 193 X10^3/uL (150.0-450.0) 05/26/16 05:40 Plt Count Comment Adequate (ADEQUATE) 05/26/16 05:40 MPV 8.0 fL (7.4-11.0) 05/26/16 05:40 Neut % 74.8 % (42.0-75.0) 05/26/16 05:40 Lymph % 18.5 % (21.0-51.0) L 05/26/16 05:40 [place] % 5.4 % (0.0-13.0) 05/26/16 05:40 Eos % 1.1 % (0.9-2.9) 05/26/16 05:40 Baso % 0.2 % (0.2-1.0) 05/26/16 05:40 Neut # 7.5 x10^3/uL (2.2-4.8) H 05/26/16 05:40 Lymph # 1.9 X10^3/uL (1.3-2.9) 05/26/16 05:40 [place] # 0.5 x10^3/uL (0.3-0.8) 05/26/16 05:40 Eos # 0.1 x10^3/uL (0.0-0.2) 05/26/16 05:40 Baso # 0.0 X10^3/uL (0.0-0.1) 05/26/16 05:40 Absolute Nucleated RBC 0.0 /100WBC 05/26/16 05:40 Plt Morphology Comment Normal (NORMAL) 05/26/16 05:40 RBC Morphology Abnormal (NORMAL) 05/26/16 05:40 Anisocytosis 1+ A 05/26/16 05:40 Sodium 129 mmol/L (136-145) L 05/26/16 05:40 Corrected Sodium TNP 05/26/16 05:40 Potassium 5.3 mmol/L (3.5-5.1) H 05/26/16 05:40 Chloride 101 mmol/L (98-107) 05/26/16 05:40 Carbon Dioxide 16.7 mmol/L (21-32) L 05/26/16 05:40 BUN 41 mg/dL (7-18) H 05/26/16 05:40 Creatinine 2.38 mg/dL (0.70-1.30) H 05/26/16 05:40 Est GFR (MDRD) Af Amer 35 (>60) L 05/26/16 05:40 Est GFR (MDRD) Non-Af 29 (>60) L 05/26/16 05:40 Glucose 83 mg/dL (65-99) 05/26/16 05:40 Calcium 7.7 mg/dL (8.5-10.1) L 05/26/16 05:40 Corrected Calcium 9.7 mg/dL (8.5-10.1) 05/26/16 05:40 Total Bilirubin 0.30 mg/dL (0.2-1.0) 05/26/16 05:40 AST 21 Units/L (15-37) 05/26/16 05:40 ALT 11 Units/L (12-78) L 05/26/16 05:40 Alkaline Phosphatase 167 Units/L (46-116) H 05/26/16 05:40 Total Protein 4.9 g/dL (6.4-8.2) L 05/26/16 05:40 Albumin 1.5 g/dL (3.4-5.0) L 05/26/16 05:40 Globulin 3.4 g/dL (2.5-4.5) 05/26/16 05:40 Albumin/Globulin Ratio 0.4 Ratio (1.1-2.1) L 05/26/16 05:40 - Plan (1) ARF (acute renal failure) Status: Acute Qualifiers: Acute renal failure type: unspecified Qualified Code(s): N17.9 - Acute kidney failure, unspecified Plan: 1. CMP and CBC today. 2. Advance diet as tolerated. 3. Aggressive IV fluid hydration. 4. Continue current IV antibiotics. 5. Continue daily paracentesis drainage as per home regimen. 6. Continue home medications (2) Ascites Status: Acute Qualifiers: Ascites type: A Plan: Continue daily paracentesis drainage as per home regimen (3) Dehydration Status: Acute Plan: As above. (4) Metastatic colorectal cancer Status: Acute Plan: As above. 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
[2016-05-27 05:18] LABS: ALBUMIN 1.5 g/dL (3.4-5.0); ALKALINE PHOSPHATASE 162 Units/L (46-116); ASPARTATE AMINO TRANSFERASE 16 Units/L (15-37); BLOOD UREA NITROGEN 40 mg/dL (7-18); CALCIUM 7.7 mg/dL (8.5-10.1); CARBON DIOXIDE 16.8 mmol/L (21-32); CHLORIDE 100 mmol/L (98-107); COR CA(FOR HYPOALB) 9.7 mg/dL (8.5-10.1); GLUCOSE 90 mg/dL (65-99); SODIUM 129 mmol/L (136-145); TOTAL PROTEIN 4.8 g/dL (6.4-8.2); eGFR BLACK RACES 37 (>60); eGFR NON BLACK RACES 30 (>60)
[2016-05-27 05:21] LABS: BASOPHILS % (AUTO) 0.2 % (0.2-1.0); EOSINOPHILS # (AUTO) 0.2 x10^3/uL (0.0-0.2); EOSINOPHILS % (AUTO) 1.6 % (0.9-2.9); HEMATOCRIT 31.5 % (42.0-54.0); HEMOGLOBIN 10.7 g/dL (13.5-18.0); LYMPHOCYTES # (AUTO) 2.1 X10^3/uL (1.3-2.9); MEAN CORPUSCULAR HEMOGLOBIN 30.4 pg (27.0-34.0); MEAN CORPUSCULAR HGB CONC 33.8 g/dL (33.0-35.0); MEAN CORPUSCULAR VOLUME 89.7 fL (80.0-100.0); MEAN PLATELET VOLUME 8.2 fL (7.4-11.0); MONOCYTES # (AUTO) 0.6 x10^3/uL (0.3-0.8); NEUTROPHILS # (AUTO) 6.6 x10^3/uL (2.2-4.8); NEUTROPHILS % (AUTO) 70.2 % (42.0-75.0); PLATELET COUNT 196 X10^3/uL (150.0-450.0); RED BLOOD COUNT 3.51 X10^6/uL (4.7-6.0); RED CELL DISTRIBUTION WIDTH 20.6 % (11.6-16.5); WHITE BLOOD COUNT 9.5 X10^3/uL (3.6-10.0)
[2016-05-27 05:37] LABS: ALANINE AMINOTRANSFERASE 10 Units/L (12-78)
[2016-05-27] MEDS: BUTT CREAM (COMPOUND) TOP SCH ×3 (06:03→21:00)
[2016-05-27 06:04] LABS: ANISOCYTOSIS 1+; PLATELET MORPHOLOGY COMMENT NORMAL (NORMAL)
--- NOTE | 2016-05-27 06:55 | RAD ---
HISTORY: Abdominal pain, metastatic cancer Study: KUB Comparison: November 25, 2014 Findings: Evaluation of the abdomen demonstrates a normal bowel gas pattern. No pathological soft tissue mass or calcification can be observed. The bony structures are grossly intact. Tubing overlies the righ t abdomen and terminates over the pelvis. IMPRESSION: 1. No evidence for acute abdominal pathology identified. Reported By:
[2016-05-27] MEDS: NEURONTIN CAP 300 MG PO SCH ×2 (09:33→15:35)
[2016-05-27] MEDS: NYSTATIN POWDER TOP SCH ×2 (09:34→21:00)
[2016-05-27] MEDS: PHENERGAN INJ 25 MG IVP PRN (11:08)
[2016-05-27] MEDS: TIMOPTIC 0.5% EYE DROPS EACHEYE SCH (15:24)
[2016-05-27] MEDS: ZOFRAN INJ 4 MG VIAL IVP PRN (15:35)
[2016-05-27] MEDS: NS 1000 ML 1,000 ML IV PRN (17:34)
--- NOTE | 2016-05-27 18:52 | PCM.PROG ---
Progress Note - Progress Note for Day of Date: 05/27/16 - Subjective Subjective: The patient is a 65-year-old white male who was admitted to be [facility] a 05/22/2016 secondary to intractable nausea and vomiting, profound dehydration with acute renal failure and hyperkalemia. Patient states that his symptoms have minimally improved since admission. Patient continues to complain of severe nausea which has minimally improved. Should be noted that the patient has metastatic prostate cancer, and end-stage metastatic colorectal cancer which has been determined to be terminal with no further treatment recommended. Pt continues with hyponatremia, will continue IV hydration and symptomatic management. Pt co improved nausea and appetite today. Continue with generalized weakness. - Past Medical Family Social History Past Med/Fam/Surg Hx: No changes since H&P Allergies: Allergies Hydralazine Allergy (Verified 05/22/16 12:43) Penicillins Allergy (Verified 05/22/16 12:43) - Review of Systems ROS: No change since H&P - Vital Signs and I&O's Vital Signs: Temperature 98.4 F Pulse Rate [Right Brachial] 97 Pulse Rate [Left] 111 Respiratory Rate 20 Blood Pressure [Right Arm] 120/78 Blood Pressure [Left Arm] 99/62 O2 Sat by Pulse Oximetry 96 Intake and Output: Intake & Output 05/25/16 05/26/16 05/27/16 05/28/16 11:59 11:59 11:59 11:59 Intake Total 1320 1640 1120 653 Output Total 1800 170 939 0145 Balance -480 1290 920 -547 - Physical Exam Oriented: Normal Eyes: Normal Ear: Normal Nose: Normal Throat: Normal Respiratory: Diminished Cardiovascular: Normal : Normal Auscultation: Bowel Sounds: Normal Tenderness: Diffuse Skin: Decreased Turgur Musculoskeletal: Leg Psychiatric: Depression Mood Description: Withdrawn Affect: Flat Speech Pattern: Clear - Laboratory and Diagnostics Result Diagrams: 05/27/16 04:45 05/27/16 04:45 Labs: 05/23/16 10:44 Peritoneal Fluid - Final 05/23/16 10:44 Peritoneal Fluid Gram Stain - Final Laboratory WBC 9.5 X10^3/uL (3.6-10.0) 05/27/16 04:45 RBC 3.51 X10^6/uL (4.7-6.0) L 05/27/16 04:45 Hgb 10.7 g/dL (13.5-18.0) L 05/27/16 04:45 Hct 31.5 % (42.0-54.0) L 05/27/16 04:45 MCV 89.7 fL (80.0-100.0) 05/27/16 04:45 MCH 30.4 pg (27.0-34.0) 05/27/16 04:45 MCHC 33.8 g/dL (33.0-35.0) 05/27/16 04:45 RDW 20.6 % (11.6-16.5) H 05/27/16 04:45 Plt Count 196 X10^3/uL (150.0-450.0) 05/27/16 04:45 Plt Count Comment Adequate (ADEQUATE) 05/27/16 04:45 MPV 8.2 fL (7.4-11.0) 05/27/16 04:45 Neut % 70.2 % (42.0-75.0) 05/27/16 04:45 Lymph % 22.0 % (21.0-51.0) 05/27/16 04:45 [place] % 6.0 % (0.0-13.0) 05/27/16 04:45 Eos % 1.6 % (0.9-2.9) 05/27/16 04:45 Baso % 0.2 % (0.2-1.0) 05/27/16 04:45 Neut # 6.6 x10^3/uL (2.2-4.8) H 05/27/16 04:45 Lymph # 2.1 X10^3/uL (1.3-2.9) 05/27/16 04:45 [place] # 0.6 x10^3/uL (0.3-0.8) 05/27/16 04:45 Eos # 0.2 x10^3/uL (0.0-0.2) 05/27/16 04:45 Baso # 0.0 X10^3/uL (0.0-0.1) 05/27/16 04:45 Absolute Nucleated RBC 0.1 /100WBC 05/27/16 04:45 Plt Morphology Comment Normal (NORMAL) 05/27/16 04:45 RBC Morphology Abnormal (NORMAL) 05/27/16 04:45 Anisocytosis 1+ A 05/27/16 04:45 Sample Site Cancelled 05/26/16 16:44 ABG pH Cancelled 05/26/16 16:44 ABG pCO2 Cancelled 05/26/16 16:44 ABG pO2 Cancelled 05/26/16 16:44 ABG HCO3 Cancelled 05/26/16 16:44 ABG O2 Saturation Cancelled 05/26/16 16:44 ABG Base Excess Cancelled 05/26/16 16:44 Reginald Test Cancelled 05/26/16 16:44 A-a Gradient Cancelled 05/26/16 16:44 FiO2 Cancelled 05/26/16 16:44 Blood Gas Comments Cancelled 05/26/16 16:44 Sodium 129 mmol/L (136-145) L 05/27/16 04:45 Corrected Sodium TNP 05/27/16 04:45 Potassium 5.1 mmol/L (3.5-5.1) 05/27/16 04:45 Chloride 100 mmol/L (98-107) 05/27/16 04:45 Carbon Dioxide 16.8 mmol/L (21-32) L 05/27/16 04:45 BUN 40 mg/dL (7-18) H 05/27/16 04:45 Creatinine 2.30 mg/dL (0.70-1.30) H 05/27/16 04:45 Est GFR (MDRD) Af Amer 37 (>60) L 05/27/16 04:45 Est GFR (MDRD) Non-Af 30 (>60) L 05/27/16 04:45 Glucose 90 mg/dL (65-99) 05/27/16 04:45 Calcium 7.7 mg/dL (8.5-10.1) L 05/27/16 04:45 Corrected Calcium 9.7 mg/dL (8.5-10.1) 05/27/16 04:45 Total Bilirubin 0.20 mg/dL (0.2-1.0) 05/27/16 04:45 AST 16 Units/L (15-37) 05/27/16 04:45 ALT 10 Units/L (12-78) L 05/27/16 04:45 Alkaline Phosphatase 162 Units/L (46-116) H 05/27/16 04:45 Total Protein 4.8 g/dL (6.4-8.2) L 05/27/16 04:45 Albumin 1.5 g/dL (3.4-5.0) L 05/27/16 04:45 Globulin 3.3 g/dL (2.5-4.5) 05/27/16 04:45 Albumin/Globulin Ratio 0.5 Ratio (1.1-2.1) L 05/27/16 04:45 - Plan (1) ARF (acute renal failure) Status: Acute Qualifiers: Acute renal failure type: unspecified Qualified Code(s): N17.9 - Acute kidney failure, unspecified Plan: 1. CMP and CBC today. 2. Advance diet as tolerated. 3. Aggressive IV fluid hydration. 4. Continue current IV antibiotics. 5. Continue daily paracentesis drainage as per home regimen. 6. Continue home medications (2) Ascites Status: Acute Qualifiers: Ascites type: A Plan: Continue daily paracentesis drainage as per home regimen (3) Dehydration Status: Acute Plan: As above. (4) Metastatic colorectal cancer Status: Acute Plan: As above. 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
[2016-05-28] MEDS: NEURONTIN CAP 300 MG PO SCH ×3 (00:18→15:38)
[2016-05-28] MEDS: BUTT CREAM (COMPOUND) TOP SCH ×3 (06:21→21:20)
[2016-05-28] MEDS: NS 1000 ML 1,000 ML IV PRN (06:22)
[2016-05-28 06:28] LABS: ALANINE AMINOTRANSFERASE 11 Units/L (12-78); ALBUMIN 1.5 g/dL (3.4-5.0); ALKALINE PHOSPHATASE 164 Units/L (46-116); ASPARTATE AMINO TRANSFERASE 21 Units/L (15-37); BLOOD UREA NITROGEN 39 mg/dL (7-18); CALCIUM 7.7 mg/dL (8.5-10.1); CARBON DIOXIDE 16.3 mmol/L (21-32); CHLORIDE 101 mmol/L (98-107); COR CA(FOR HYPOALB) 9.7 mg/dL (8.5-10.1); CREATININE 2.26 mg/dL (0.70-1.30); GLUCOSE 86 mg/dL (65-99); SODIUM 129 mmol/L (136-145); TOTAL PROTEIN 4.8 g/dL (6.4-8.2); eGFR BLACK RACES 37 (>60); eGFR NON BLACK RACES 31 (>60)
[2016-05-28 06:30] LABS: BASOPHILS % (AUTO) 0.3 % (0.2-1.0); EOSINOPHILS # (AUTO) 0.2 x10^3/uL (0.0-0.2); EOSINOPHILS % (AUTO) 2.1 % (0.9-2.9); HEMOGLOBIN 10.5 g/dL (13.5-18.0); LYMPHOCYTES # (AUTO) 1.8 X10^3/uL (1.3-2.9); LYMPHOCYTES % (AUTO) 20.5 % (21.0-51.0); MEAN CORPUSCULAR HEMOGLOBIN 30.6 pg (27.0-34.0); MEAN CORPUSCULAR VOLUME 89.9 fL (80.0-100.0); MEAN PLATELET VOLUME 8.2 fL (7.4-11.0); MONOCYTES # (AUTO) 0.5 x10^3/uL (0.3-0.8); MONOCYTES % (AUTO) 6.1 % (0.0-13.0); NEUTROPHILS # (AUTO) 6.3 x10^3/uL (2.2-4.8); PLATELET COUNT 198 X10^3/uL (150.0-450.0); RED BLOOD COUNT 3.44 X10^6/uL (4.7-6.0); RED CELL DISTRIBUTION WIDTH 20.3 % (11.6-16.5); WHITE BLOOD COUNT 8.9 X10^3/uL (3.6-10.0)
[2016-05-28 07:00] LABS: ANISOCYTOSIS 1+; PLATELET MORPHOLOGY COMMENT NORMAL (NORMAL)
[2016-05-28] MEDS: TIMOPTIC 0.5% EYE DROPS EACHEYE SCH (09:30)
[2016-05-28] MEDS: NYSTATIN POWDER TOP SCH ×2 (09:31→21:19)
--- NOTE | 2016-05-28 15:15 | PCM.PROG ---
Progress Note - Progress Note for Day of Date: 05/28/16 - Subjective Subjective: The patient is a 65-year-old white male who was admitted to be [facility] a 05/22/2016 secondary to intractable nausea and vomiting, profound dehydration with acute renal failure and hyperkalemia. Patient states that his symptoms have minimally improved since admission. Patient continues to complain of severe nausea which has minimally improved. Should be noted that the patient has metastatic prostate cancer, and end-stage metastatic colorectal cancer which has been determined to be terminal with no further treatment recommended. Pt continues with hyponatremia, will continue IV hydration and symptomatic management. Pt co improved nausea and appetite today. Continue with generalized weakness. - Past Medical Family Social History Past Med/Fam/Surg Hx: No changes since H&P Allergies: Allergies Hydralazine Allergy (Verified 05/22/16 12:43) Penicillins Allergy (Verified 05/22/16 12:43) - Review of Systems ROS: No change since H&P - Vital Signs and I&O's Vital Signs: Temperature 97.7 F Pulse Rate [Right Brachial] 80 Pulse Rate [Left] 111 Respiratory Rate 20 Blood Pressure [Right Arm] 103/70 Blood Pressure [Left Arm] 99/62 O2 Sat by Pulse Oximetry 96 Intake and Output: Intake & Output 05/26/16 05/27/16 05/28/16 05/29/16 11:59 11:59 11:59 11:59 Intake Total 1640 1120 1142 Output Total 698 433 7280 Balance 1290 920 -158 - Physical Exam Oriented: Normal Eyes: Normal Ear: Normal Nose: Normal Throat: Normal Respiratory: Diminished Cardiovascular: Normal : Normal Auscultation: Bowel Sounds: Normal Tenderness: Diffuse Skin: Decreased [place]urgur Musculoskeletal: Leg Psychiatric: Depression Mood Description: Withdrawn Affect: Flat Speech Pattern: Clear - Laboratory and Diagnostics Result Diagrams: 05/28/16 05:30 05/28/16 05:30 Labs: 05/23/16 10:44 Peritoneal Fluid - Final 05/23/16 10:44 Peritoneal Fluid Gram Stain - Final Laboratory WBC 8.9 X10^3/uL (3.6-10.0) 05/28/16 05:30 RBC 3.44 X10^6/uL (4.7-6.0) L 05/28/16 05:30 Hgb 10.5 g/dL (13.5-18.0) L 05/28/16 05:30 Hct 31.0 % (42.0-54.0) L 05/28/16 05:30 MCV 89.9 fL (80.0-100.0) 05/28/16 05:30 MCH 30.6 pg (27.0-34.0) 05/28/16 05:30 MCHC 34.0 g/dL (33.0-35.0) 05/28/16 05:30 RDW 20.3 % (11.6-16.5) H 05/28/16 05:30 Plt Count 198 X10^3/uL (150.0-450.0) 05/28/16 05:30 Plt Count Comment Adequate (ADEQUATE) 05/28/16 05:30 MPV 8.2 fL (7.4-11.0) 05/28/16 05:30 Neut % 71.0 % (42.0-75.0) 05/28/16 05:30 Lymph % 20.5 % (21.0-51.0) L 05/28/16 05:30 [place] % 6.1 % (0.0-13.0) 05/28/16 05:30 Eos % 2.1 % (0.9-2.9) 05/28/16 05:30 Baso % 0.3 % (0.2-1.0) 05/28/16 05:30 Neut # 6.3 x10^3/uL (2.2-4.8) H 05/28/16 05:30 Lymph # 1.8 X10^3/uL (1.3-2.9) 05/28/16 05:30 [place] # 0.5 x10^3/uL (0.3-0.8) 05/28/16 05:30 Eos # 0.2 x10^3/uL (0.0-0.2) 05/28/16 05:30 Baso # 0.0 X10^3/uL (0.0-0.1) 05/28/16 05:30 Absolute Nucleated RBC 0.0 /100WBC 05/28/16 05:30 Plt Morphology Comment Normal (NORMAL) 05/28/16 05:30 RBC Morphology Abnormal (NORMAL) 05/28/16 05:30 Anisocytosis 1+ A 05/28/16 05:30 Sample Site Cancelled 05/26/16 16:44 ABG pH Cancelled 05/26/16 16:44 ABG pCO2 Cancelled 05/26/16 16:44 ABG pO2 Cancelled 05/26/16 16:44 ABG HCO3 Cancelled 05/26/16 16:44 ABG O2 Saturation Cancelled 05/26/16 16:44 ABG Base Excess Cancelled 05/26/16 16:44 Reginald Test Cancelled 05/26/16 16:44 A-a Gradient Cancelled 05/26/16 16:44 FiO2 Cancelled 05/26/16 16:44 Blood Gas Comments Cancelled 05/26/16 16:44 Sodium 129 mmol/L (136-145) L 05/28/16 05:30 Corrected Sodium TNP 05/28/16 05:30 Potassium 5.3 mmol/L (3.5-5.1) H 05/28/16 05:30 Chloride 101 mmol/L (98-107) 05/28/16 05:30 Carbon Dioxide 16.3 mmol/L (21-32) L 05/28/16 05:30 BUN 39 mg/dL (7-18) H 05/28/16 05:30 Creatinine 2.26 mg/dL (0.70-1.30) H 05/28/16 05:30 Est GFR (MDRD) Af Amer 37 (>60) L 05/28/16 05:30 Est GFR (MDRD) Non-Af 31 (>60) L 05/28/16 05:30 Glucose 86 mg/dL (65-99) 05/28/16 05:30 Calcium 7.7 mg/dL (8.5-10.1) L 05/28/16 05:30 Corrected Calcium 9.7 mg/dL (8.5-10.1) 05/28/16 05:30 Total Bilirubin 0.20 mg/dL (0.2-1.0) 05/28/16 05:30 AST 21 Units/L (15-37) 05/28/16 05:30 ALT 11 Units/L (12-78) L 05/28/16 05:30 Alkaline Phosphatase 164 Units/L (46-116) H 05/28/16 05:30 Total Protein 4.8 g/dL (6.4-8.2) L 05/28/16 05:30 Albumin 1.5 g/dL (3.4-5.0) L 05/28/16 05:30 Globulin 3.3 g/dL (2.5-4.5) 05/28/16 05:30 Albumin/Globulin Ratio 0.5 Ratio (1.1-2.1) L 05/28/16 05:30 - Plan (1) ARF (acute renal failure) Status: Acute Qualifiers: Acute renal failure type: unspecified Qualified Code(s): N17.9 - Acute kidney failure, unspecified Plan: 1. CMP and CBC today. 2. Advance diet as tolerated. 3. Aggressive IV fluid hydration. 4. Continue current IV antibiotics. 5. Continue daily paracentesis drainage as per home regimen. 6. Continue home medications (2) Ascites Status: Acute Qualifiers: Ascites type: A Plan: Continue daily paracentesis drainage as per home regimen (3) Dehydration Status: Acute Plan: As above. (4) Metastatic colorectal cancer Status: Acute Plan: As above. 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
[2016-05-28] MEDS ORDERED: COLACE CAP 100 MG PO ONE (15:20)
[2016-05-28] MEDS: ZOFRAN INJ 4 MG VIAL IVP PRN (17:40)
[2016-05-28] MEDS: PHENERGAN INJ 25 MG IVP PRN (19:31)
[2016-05-29] MEDS: NEURONTIN CAP 300 MG PO SCH ×3 (00:08→16:12)
[2016-05-29] MEDS: PHENERGAN INJ 25 MG IVP PRN (01:35)
[2016-05-29] MEDS: NS 1000 ML 1,000 ML IV PRN ×2 (04:19→20:32)
[2016-05-29] MEDS: BUTT CREAM (COMPOUND) TOP SCH ×3 (05:34→21:18)
[2016-05-29 06:17] LABS: BASOPHILS % (AUTO) 0.1 % (0.2-1.0); EOSINOPHILS # (AUTO) 0.1 x10^3/uL (0.0-0.2); HEMATOCRIT 31.7 % (42.0-54.0); HEMOGLOBIN 10.6 g/dL (13.5-18.0); LYMPHOCYTES # (AUTO) 1.7 X10^3/uL (1.3-2.9); LYMPHOCYTES % (AUTO) 17.7 % (21.0-51.0); MEAN CORPUSCULAR HEMOGLOBIN 30.1 pg (27.0-34.0); MEAN CORPUSCULAR HGB CONC 33.4 g/dL (33.0-35.0); MEAN CORPUSCULAR VOLUME 90.3 fL (80.0-100.0); MEAN PLATELET VOLUME 8.5 fL (7.4-11.0); MONOCYTES # (AUTO) 0.5 x10^3/uL (0.3-0.8); MONOCYTES % (AUTO) 4.6 % (0.0-13.0); NEUTROPHILS # (AUTO) 7.5 x10^3/uL (2.2-4.8); NEUTROPHILS % (AUTO) 76.6 % (42.0-75.0); PLATELET COUNT 205 X10^3/uL (150.0-450.0); RED BLOOD COUNT 3.51 X10^6/uL (4.7-6.0); RED CELL DISTRIBUTION WIDTH 20.5 % (11.6-16.5); WHITE BLOOD COUNT 9.8 X10^3/uL (3.6-10.0)
[2016-05-29 06:39] LABS: ALANINE AMINOTRANSFERASE 12 Units/L (12-78); ALBUMIN 1.6 g/dL (3.4-5.0); ALKALINE PHOSPHATASE 163 Units/L (46-116); ASPARTATE AMINO TRANSFERASE 20 Units/L (15-37); BLOOD UREA NITROGEN 39 mg/dL (7-18); CALCIUM 7.8 mg/dL (8.5-10.1); CARBON DIOXIDE 17.7 mmol/L (21-32); CHLORIDE 101 mmol/L (98-107); COR CA(FOR HYPOALB) 9.7 mg/dL (8.5-10.1); CREATININE 2.41 mg/dL (0.70-1.30); GLUCOSE 92 mg/dL (65-99); SODIUM 130 mmol/L (136-145); TOTAL PROTEIN 4.8 g/dL (6.4-8.2); eGFR BLACK RACES 35 (>60); eGFR NON BLACK RACES 29 (>60)
[2016-05-29 07:23] LABS: ANISOCYTOSIS 1+; PLATELET MORPHOLOGY COMMENT NORMAL (NORMAL)
[2016-05-29] MEDS: TIMOPTIC 0.5% EYE DROPS EACHEYE SCH (08:30)
[2016-05-29] MEDS: NYSTATIN POWDER TOP SCH ×2 (08:30→20:33)
[2016-05-29] MEDS ORDERED: TIMOPTIC 0.5% EYE DROPS OP SCH (10:00)
--- NOTE | 2016-05-29 14:49 | PCM.PROG ---
Progress Note - Progress Note for Day of Date: 05/29/16 - Subjective Subjective: The patient is a 65-year-old white male who was admitted to be [facility] a 05/22/2016 secondary to intractable nausea and vomiting, profound dehydration with acute renal failure and hyperkalemia. Patient states that his symptoms have minimally improved since admission. Patient continues to complain of severe nausea which has minimally improved. Should be noted that the patient has metastatic prostate cancer, and end-stage metastatic colorectal cancer which has been determined to be terminal with no further treatment recommended. Pt continues with hyponatremia, will continue IV hydration and symptomatic management. Pt co improved nausea and appetite today. Continue with generalized weakness. Continue with physical therapy - Past Medical Family Social History Past Med/Fam/Surg Hx: No changes since H&P Allergies: Allergies Hydralazine Allergy (Verified 05/22/16 12:43) Penicillins Allergy (Verified 05/22/16 12:43) - Review of Systems ROS: No change since H&P - Vital Signs and I&O's Vital Signs: Temperature 97.5 F Pulse Rate [Right Brachial] 81 Pulse Rate [Left] 90 Respiratory Rate 20 Blood Pressure [Right Arm] 105/73 Blood Pressure [Left Arm] 114/75 O2 Sat by Pulse Oximetry 93 Intake and Output: Intake & Output 05/27/16 05/28/16 05/29/16 05/30/16 11:59 11:59 11:59 11:59 Intake Total 1120 1142 956 Output Total 200 1300 100 Balance 920 -158 856 - Physical Exam Oriented: Normal Eyes: Normal Ear: Normal Nose: Normal Throat: Normal Respiratory: Diminished Cardiovascular: Normal : Normal Auscultation: Bowel Sounds: Normal Tenderness: Diffuse Skin: Decreased Turgur Musculoskeletal: Leg Psychiatric: Depression Mood Description: Withdrawn Affect: Flat Speech Pattern: Clear, Appropriate - Laboratory and Diagnostics Result Diagrams: 05/29/16 04:20 05/29/16 04:20 Labs: 05/23/16 10:44 Peritoneal Fluid - Final 05/23/16 10:44 Peritoneal Fluid Gram Stain - Final Laboratory WBC 9.8 X10^3/uL (3.6-10.0) 05/29/16 04:20 RBC 3.51 X10^6/uL (4.7-6.0) L 05/29/16 04:20 Hgb 10.6 g/dL (13.5-18.0) L 05/29/16 04:20 Hct 31.7 % (42.0-54.0) L 05/29/16 04:20 MCV 90.3 fL (80.0-100.0) 05/29/16 04:20 MCH 30.1 pg (27.0-34.0) 05/29/16 04:20 MCHC 33.4 g/dL (33.0-35.0) 05/29/16 04:20 RDW 20.5 % (11.6-16.5) H 05/29/16 04:20 Plt Count 205 X10^3/uL (150.0-450.0) 05/29/16 04:20 Plt Count Comment Adequate (ADEQUATE) 05/29/16 04:20 MPV 8.5 fL (7.4-11.0) 05/29/16 04:20 Neut % 76.6 % (42.0-75.0) H 05/29/16 04:20 Lymph % 17.7 % (21.0-51.0) L 05/29/16 04:20 [place] % 4.6 % (0.0-13.0) 05/29/16 04:20 Eos % 1.0 % (0.9-2.9) 05/29/16 04:20 Baso % 0.1 % (0.2-1.0) L 05/29/16 04:20 Neut # 7.5 x10^3/uL (2.2-4.8) H 05/29/16 04:20 Lymph # 1.7 X10^3/uL (1.3-2.9) 05/29/16 04:20 [place] # 0.5 x10^3/uL (0.3-0.8) 05/29/16 04:20 Eos # 0.1 x10^3/uL (0.0-0.2) 05/29/16 04:20 Baso # 0.0 X10^3/uL (0.0-0.1) 05/29/16 04:20 Absolute Nucleated RBC 0.1 /100WBC 05/29/16 04:20 Plt Morphology Comment Normal (NORMAL) 05/29/16 04:20 RBC Morphology Abnormal (NORMAL) 05/29/16 04:20 Anisocytosis 1+ A 05/29/16 04:20 Sample Site Cancelled 05/26/16 16:44 ABG pH Cancelled 05/26/16 16:44 ABG pCO2 Cancelled 05/26/16 16:44 ABG pO2 Cancelled 05/26/16 16:44 ABG HCO3 Cancelled 05/26/16 16:44 ABG O2 Saturation Cancelled 05/26/16 16:44 ABG Base Excess Cancelled 05/26/16 16:44 Reginald Test Cancelled 05/26/16 16:44 A-a Gradient Cancelled 05/26/16 16:44 FiO2 Cancelled 05/26/16 16:44 Blood Gas Comments Cancelled 05/26/16 16:44 Sodium 130 mmol/L (136-145) L 05/29/16 04:20 Corrected Sodium TNP 05/29/16 04:20 Potassium 5.6 mmol/L (3.5-5.1) H 05/29/16 04:20 Chloride 101 mmol/L (98-107) 05/29/16 04:20 Carbon Dioxide 17.7 mmol/L (21-32) L 05/29/16 04:20 BUN 39 mg/dL (7-18) H 05/29/16 04:20 Creatinine 2.41 mg/dL (0.70-1.30) H 05/29/16 04:20 Est GFR (MDRD) Af Amer 35 (>60) L 05/29/16 04:20 Est GFR (MDRD) Non-Af 29 (>60) L 05/29/16 04:20 Glucose 92 mg/dL (65-99) 05/29/16 04:20 Calcium 7.8 mg/dL (8.5-10.1) L 05/29/16 04:20 Corrected Calcium 9.7 mg/dL (8.5-10.1) 05/29/16 04:20 Total Bilirubin 0.20 mg/dL (0.2-1.0) 05/29/16 04:20 AST 20 Units/L (15-37) 05/29/16 04:20 ALT 12 Units/L (12-78) 05/29/16 04:20 Alkaline Phosphatase 163 Units/L (46-116) H 05/29/16 04:20 Total Protein 4.8 g/dL (6.4-8.2) L 05/29/16 04:20 Albumin 1.6 g/dL (3.4-5.0) L 05/29/16 04:20 Globulin 3.2 g/dL (2.5-4.5) 05/29/16 04:20 Albumin/Globulin Ratio 0.5 Ratio (1.1-2.1) L 05/29/16 04:20 - Plan (1) ARF (acute renal failure) Status: Acute Qualifiers: Acute renal failure type: unspecified Qualified Code(s): N17.9 - Acute kidney failure, unspecified Plan: 1. CMP and CBC q am. 2. Advance diet as tolerated. 3. Aggressive IV fluid hydration. 4. Continue current IV antibiotics. 5. Continue daily paracentesis drainage as per home regimen. 6. Continue home medications (2) Ascites Status: Acute Qualifiers: Ascites type: A Plan: Continue daily paracentesis drainage as per home regimen (3) Dehydration Status: Acute Plan: As above. (4) Metastatic colorectal cancer Status: Acute Plan: As above. 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
[2016-05-29] MEDS: MIRALAX POWDER (1 DOSE 17GM) PO SCH (20:32)
[2016-05-30] MEDS: NEURONTIN CAP 300 MG PO SCH ×4 (00:35→23:57)
--- NOTE | 2016-05-30 05:21 | RAD ---
Chest, one view Indication: Dehydration, diminished breath sounds comparison: 06/03/2016 Findings: Nodules overlying both lung bases appear unchanged. There is decreased depth of inspiratio n, without evidence for acute infiltrate, large effusion, or pneumothorax. Normal heart size. Stable right jugular Port-A-Cath positioning. Impression: No acute chest process or significant change from prior. Bibasilar nodules should be further evaluated with CT, if not recently performed. Reported By:
[2016-05-30] MEDS: BUTT CREAM (COMPOUND) TOP SCH ×3 (05:41→21:21)
[2016-05-30 06:27] LABS: BASOPHILS % (AUTO) 0.2 % (0.2-1.0); EOSINOPHILS # (AUTO) 0.2 x10^3/uL (0.0-0.2); EOSINOPHILS % (AUTO) 2.1 % (0.9-2.9); HEMATOCRIT 29.4 % (42.0-54.0); HEMOGLOBIN 9.9 g/dL (13.5-18.0); LYMPHOCYTES # (AUTO) 1.7 X10^3/uL (1.3-2.9); LYMPHOCYTES % (AUTO) 18.9 % (21.0-51.0); MEAN CORPUSCULAR HEMOGLOBIN 30.5 pg (27.0-34.0); MEAN CORPUSCULAR HGB CONC 33.7 g/dL (33.0-35.0); MEAN CORPUSCULAR VOLUME 90.4 fL (80.0-100.0); MEAN PLATELET VOLUME 8.2 fL (7.4-11.0); MONOCYTES # (AUTO) 0.6 x10^3/uL (0.3-0.8); MONOCYTES % (AUTO) 6.2 % (0.0-13.0); NEUTROPHILS # (AUTO) 6.5 x10^3/uL (2.2-4.8); NEUTROPHILS % (AUTO) 72.6 % (42.0-75.0); PLATELET COUNT 198 X10^3/uL (150.0-450.0); RED BLOOD COUNT 3.26 X10^6/uL (4.7-6.0); RED CELL DISTRIBUTION WIDTH 20.8 % (11.6-16.5)
[2016-05-30 06:33] LABS: ALANINE AMINOTRANSFERASE 11 Units/L (12-78); ALBUMIN 1.4 g/dL (3.4-5.0); ALKALINE PHOSPHATASE 161 Units/L (46-116); ASPARTATE AMINO TRANSFERASE 16 Units/L (15-37); BLOOD UREA NITROGEN 41 mg/dL (7-18); CALCIUM 7.6 mg/dL (8.5-10.1); CARBON DIOXIDE 19.2 mmol/L (21-32); CHLORIDE 103 mmol/L (98-107); COR CA(FOR HYPOALB) 9.7 mg/dL (8.5-10.1); CREATININE 2.35 mg/dL (0.70-1.30); GLUCOSE 87 mg/dL (65-99); SODIUM 131 mmol/L (136-145); TOTAL PROTEIN 4.6 g/dL (6.4-8.2); eGFR BLACK RACES 36 (>60); eGFR NON BLACK RACES 30 (>60)
[2016-05-30 06:57] LABS: ANISOCYTOSIS 1+; PLATELET MORPHOLOGY COMMENT NORMAL (NORMAL)
[2016-05-30] MEDS: NYSTATIN POWDER TOP SCH ×2 (08:56→21:22)
[2016-05-30] MEDS: TIMOPTIC 0.5% EYE DROPS EACHEYE SCH (08:57)
[2016-05-30] MEDS: CHRONULAC PO SCH (10:59)
[2016-05-30] MEDS: MIRALAX POWDER (1 DOSE 17GM) PO SCH (21:21)
[2016-05-31] MEDS: BUTT CREAM (COMPOUND) TOP SCH ×3 (05:55→21:07)
[2016-05-31 06:21] LABS: ALBUMIN 1.4 g/dL (3.4-5.0); CALCIUM 7.4 mg/dL (8.5-10.1); CARBON DIOXIDE 18.5 mmol/L (21-32); COR CA(FOR HYPOALB) 9.5 mg/dL (8.5-10.1); CREATININE 2.26 mg/dL (0.70-1.30); TOTAL PROTEIN 4.6 g/dL (6.4-8.2)
[2016-05-31 06:29] LABS: BASOPHILS % (AUTO) 0.3 % (0.2-1.0); EOSINOPHILS # (AUTO) 0.2 x10^3/uL (0.0-0.2); EOSINOPHILS % (AUTO) 2.5 % (0.9-2.9); HEMATOCRIT 29.3 % (42.0-54.0); HEMOGLOBIN 9.7 g/dL (13.5-18.0); LYMPHOCYTES # (AUTO) 1.4 X10^3/uL (1.3-2.9); LYMPHOCYTES % (AUTO) 19.7 % (21.0-51.0); MEAN CORPUSCULAR HEMOGLOBIN 30.7 pg (27.0-34.0); MEAN CORPUSCULAR HGB CONC 33.3 g/dL (33.0-35.0); MEAN CORPUSCULAR VOLUME 92.2 fL (80.0-100.0); MEAN PLATELET VOLUME 8.4 fL (7.4-11.0); MONOCYTES # (AUTO) 0.4 x10^3/uL (0.3-0.8); MONOCYTES % (AUTO) 5.3 % (0.0-13.0); NEUTROPHILS # (AUTO) 5.2 x10^3/uL (2.2-4.8); NEUTROPHILS % (AUTO) 72.2 % (42.0-75.0); PLATELET COUNT 184 X10^3/uL (150.0-450.0); RED BLOOD COUNT 3.18 X10^6/uL (4.7-6.0); RED CELL DISTRIBUTION WIDTH 21.2 % (11.6-16.5); WHITE BLOOD COUNT 7.2 X10^3/uL (3.6-10.0)
[2016-05-31 07:09] LABS: ANISOCYTOSIS 1+; PLATELET MORPHOLOGY COMMENT NORMAL (NORMAL)
[2016-05-31] MEDS: TIMOPTIC 0.5% EYE DROPS EACHEYE SCH (09:45)
[2016-05-31] MEDS: NYSTATIN POWDER TOP SCH ×2 (09:45→21:07)
[2016-05-31] MEDS: NEURONTIN CAP 300 MG PO SCH ×4 (09:45→23:59)
[2016-05-31] MEDS: CHRONULAC PO SCH (10:13)
[2016-05-31] MEDS: PHENERGAN INJ 25 MG IVP PRN (16:24)
[2016-05-31] MEDS: MIRALAX POWDER (1 DOSE 17GM) PO SCH (21:06)
[2016-06-01 04:59] LABS: BASOPHILS % (AUTO) 0.4 % (0.2-1.0); EOSINOPHILS # (AUTO) 0.2 x10^3/uL (0.0-0.2); EOSINOPHILS % (AUTO) 3.1 % (0.9-2.9); HEMATOCRIT 28.4 % (42.0-54.0); HEMOGLOBIN 9.5 g/dL (13.5-18.0); LYMPHOCYTES # (AUTO) 1.4 X10^3/uL (1.3-2.9); LYMPHOCYTES % (AUTO) 19.6 % (21.0-51.0); MEAN CORPUSCULAR HEMOGLOBIN 30.6 pg (27.0-34.0); MEAN CORPUSCULAR HGB CONC 33.4 g/dL (33.0-35.0); MEAN CORPUSCULAR VOLUME 91.6 fL (80.0-100.0); MEAN PLATELET VOLUME 8.4 fL (7.4-11.0); MONOCYTES # (AUTO) 0.5 x10^3/uL (0.3-0.8); MONOCYTES % (AUTO) 6.2 % (0.0-13.0); NEUTROPHILS # (AUTO) 5.2 x10^3/uL (2.2-4.8); NEUTROPHILS % (AUTO) 70.7 % (42.0-75.0); PLATELET COUNT 179 X10^3/uL (150.0-450.0); RED CELL DISTRIBUTION WIDTH 20.8 % (11.6-16.5); WHITE BLOOD COUNT 7.3 X10^3/uL (3.6-10.0)
[2016-06-01 05:02] LABS: BLOOD UREA NITROGEN 38 mg/dL (7-18); CALCIUM 7.5 mg/dL (8.5-10.1); CARBON DIOXIDE 18.7 mmol/L (21-32); CHLORIDE 105 mmol/L (98-107); CREATININE 2.27 mg/dL (0.70-1.30); GLUCOSE 106 mg/dL (65-99); SODIUM 132 mmol/L (136-145); eGFR BLACK RACES 37 (>60); eGFR NON BLACK RACES 31 (>60)
[2016-06-01] MEDS: BUTT CREAM (COMPOUND) TOP SCH ×3 (05:43→22:26)
[2016-06-01 05:44] LABS: ANISOCYTOSIS 1+; PLATELET MORPHOLOGY COMMENT NORMAL (NORMAL)
[2016-06-01] MEDS: TIMOPTIC 0.5% EYE DROPS EACHEYE SCH (09:56)
[2016-06-01] MEDS: NEURONTIN CAP 300 MG PO SCH ×2 (09:56→17:11)
[2016-06-01] MEDS: CHRONULAC PO SCH (09:56)
[2016-06-01] MEDS: NYSTATIN POWDER TOP SCH ×2 (09:57→22:26)
[2016-06-01] MEDS: NS 1000 ML 1,000 ML IV PRN ×2 (13:02→13:04)
--- NOTE | 2016-06-01 17:10 | PCM.PROG ---
Progress Note - Subjective Subjective: The patient is a 65-year-old white male who was admitted to be [facility] a 05/22/2016 secondary to intractable nausea and vomiting, profound dehydration with acute renal failure and hyperkalemia. Patient states that his symptoms have minimally improved since admission. Patient continues to complain of severe nausea which has minimally improved. Should be noted that the patient has metastatic prostate cancer, and end-stage metastatic colorectal cancer which has been determined to be terminal with no further treatment recommended. Pt continues with hyponatremia, will continue IV hydration and symptomatic management. Pt co improved nausea and appetite. Continue with generalized weakness. Continue with physical therapy - Past Medical Family Social History Past Med/Fam/Surg Hx: No changes since H&P Allergies: Allergies Hydralazine Allergy (Verified 05/22/16 12:43) Penicillins Allergy (Verified 05/22/16 12:43) - Review of Systems ROS: No change since H&P - Vital Signs and I&O's Vital Signs: Temperature 97.5 F Pulse Rate [Right Brachial] 81 Pulse Rate [Left] 89 Respiratory Rate 18 Blood Pressure [Right Arm] 98/70 Blood Pressure [Left Arm] 132/71 O2 Sat by Pulse Oximetry 94 Intake and Output: Intake & Output 05/30/16 05/31/16 06/01/16 06/02/16 11:59 11:59 11:59 11:59 Intake Total 1740 2000 1240 700 Output Total 300 100 Balance 1740 1700 1140 700 - Physical Exam Oriented: Normal Eyes: Normal Ear: Normal Nose: Normal Throat: Normal Respiratory: Diminished Cardiovascular: Normal : Normal Auscultation: Bowel Sounds: Normal Tenderness: Diffuse Skin: Decreased Turgur Musculoskeletal: Leg Psychiatric: Depression Mood Description: Withdrawn Affect: Flat Speech Pattern: Clear, Appropriate - Laboratory and Diagnostics Result Diagrams: 06/01/16 03:00 06/01/16 03:00 Labs: 05/23/16 10:44 Peritoneal Fluid - Final 05/23/16 10:44 Peritoneal Fluid Gram Stain - Final Laboratory WBC 7.3 X10^3/uL (3.6-10.0) 06/01/16 03:00 RBC 3.10 X10^6/uL (4.7-6.0) L 06/01/16 03:00 Hgb 9.5 g/dL (13.5-18.0) L 06/01/16 03:00 Hct 28.4 % (42.0-54.0) L 06/01/16 03:00 MCV 91.6 fL (80.0-100.0) 06/01/16 03:00 MCH 30.6 pg (27.0-34.0) 06/01/16 03:00 MCHC 33.4 g/dL (33.0-35.0) 06/01/16 03:00 RDW 20.8 % (11.6-16.5) H 06/01/16 03:00 Plt Count 179 X10^3/uL (150.0-450.0) 06/01/16 03:00 Plt Count Comment Adequate (ADEQUATE) 06/01/16 03:00 MPV 8.4 fL (7.4-11.0) 06/01/16 03:00 Neut % 70.7 % (42.0-75.0) 06/01/16 03:00 Lymph % 19.6 % (21.0-51.0) L 06/01/16 03:00 [place] % 6.2 % (0.0-13.0) 06/01/16 03:00 Eos % 3.1 % (0.9-2.9) H 06/01/16 03:00 Baso % 0.4 % (0.2-1.0) 06/01/16 03:00 Neut # 5.2 x10^3/uL (2.2-4.8) H 06/01/16 03:00 Lymph # 1.4 X10^3/uL (1.3-2.9) 06/01/16 03:00 [place] # 0.5 x10^3/uL (0.3-0.8) 06/01/16 03:00 Eos # 0.2 x10^3/uL (0.0-0.2) 06/01/16 03:00 Baso # 0.0 X10^3/uL (0.0-0.1) 06/01/16 03:00 Absolute Nucleated RBC 0.1 /100WBC 06/01/16 03:00 Plt Morphology Comment Normal (NORMAL) 06/01/16 03:00 RBC Morphology Abnormal (NORMAL) 06/01/16 03:00 Anisocytosis 1+ A 06/01/16 03:00 Sample Site Cancelled 05/26/16 16:44 ABG pH Cancelled 05/26/16 16:44 ABG pCO2 Cancelled 05/26/16 16:44 ABG pO2 Cancelled 05/26/16 16:44 ABG HCO3 Cancelled 05/26/16 16:44 ABG O2 Saturation Cancelled 05/26/16 16:44 ABG Base Excess Cancelled 05/26/16 16:44 Reginald Test Cancelled 05/26/16 16:44 A-a Gradient Cancelled 05/26/16 16:44 FiO2 Cancelled 05/26/16 16:44 Blood Gas Comments Cancelled 05/26/16 16:44 Sodium 132 mmol/L (136-145) L 06/01/16 03:00 Corrected Sodium TNP 06/01/16 03:00 Potassium 5.6 mmol/L (3.5-5.1) H 06/01/16 03:00 Chloride 105 mmol/L (98-107) 06/01/16 03:00 Carbon Dioxide 18.7 mmol/L (21-32) L 06/01/16 03:00 BUN 38 mg/dL (7-18) H 06/01/16 03:00 Creatinine 2.27 mg/dL (0.70-1.30) H 06/01/16 03:00 Est GFR (MDRD) Af Amer 37 (>60) L 06/01/16 03:00 Est GFR (MDRD) Non-Af 31 (>60) L 06/01/16 03:00 Glucose 106 mg/dL (65-99) H 06/01/16 03:00 Calcium 7.5 mg/dL (8.5-10.1) L 06/01/16 03:00 Corrected Calcium 9.5 mg/dL (8.5-10.1) 05/31/16 05:00 Total Bilirubin 0.20 mg/dL (0.2-1.0) 05/31/16 05:00 AST 17 Units/L (15-37) 05/31/16 05:00 ALT 10 Units/L (12-78) L 05/31/16 05:00 Alkaline Phosphatase 161 Units/L (46-116) H 05/31/16 05:00 Total Protein 4.6 g/dL (6.4-8.2) L 05/31/16 05:00 Albumin 1.4 g/dL (3.4-5.0) L 05/31/16 05:00 Globulin 3.2 g/dL (2.5-4.5) 05/31/16 05:00 Albumin/Globulin Ratio 0.4 Ratio (1.1-2.1) L 05/31/16 05:00 - Plan (1) ARF (acute renal failure) Status: Acute Qualifiers: Acute renal failure type: unspecified Qualified Code(s): N17.9 - Acute kidney failure, unspecified Plan: 1. CMP and CBC q am. 2. Advance diet as tolerated. 3. Aggressive IV fluid hydration. 4. Continue current IV antibiotics. 5. Continue daily paracentesis drainage as per home regimen. 6. Continue home medications (2) Ascites Status: Acute Qualifiers: Ascites type: A Plan: Continue daily paracentesis drainage as per home regimen (3) Dehydration Status: Acute Plan: As above. (4) Metastatic colorectal cancer Status: Chronic Plan: As above. 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
[2016-06-01] MEDS: PHENERGAN INJ 25 MG IVP PRN (17:15)
[2016-06-01] MEDS: MIRALAX POWDER (1 DOSE 17GM) PO SCH (22:26)
[2016-06-02] MEDS: ZOFRAN INJ 4 MG VIAL IVP PRN ×3 (00:19→14:05)
[2016-06-02] MEDS: NEURONTIN CAP 300 MG PO SCH ×4 (00:19→23:00)
[2016-06-02 05:30] LABS: BASOPHILS % (AUTO) 0.2 % (0.2-1.0); EOSINOPHILS # (AUTO) 0.1 x10^3/uL (0.0-0.2); EOSINOPHILS % (AUTO) 1.7 % (0.9-2.9); HEMATOCRIT 28.9 % (42.0-54.0); HEMOGLOBIN 9.6 g/dL (13.5-18.0); LYMPHOCYTES # (AUTO) 1.5 X10^3/uL (1.3-2.9); LYMPHOCYTES % (AUTO) 19.5 % (21.0-51.0); MEAN CORPUSCULAR HEMOGLOBIN 30.8 pg (27.0-34.0); MEAN CORPUSCULAR HGB CONC 33.4 g/dL (33.0-35.0); MEAN PLATELET VOLUME 8.1 fL (7.4-11.0); MONOCYTES # (AUTO) 0.5 x10^3/uL (0.3-0.8); MONOCYTES % (AUTO) 5.8 % (0.0-13.0); NEUTROPHILS # (AUTO) 5.8 x10^3/uL (2.2-4.8); NEUTROPHILS % (AUTO) 72.8 % (42.0-75.0); PLATELET COUNT 187 X10^3/uL (150.0-450.0); RED BLOOD COUNT 3.14 X10^6/uL (4.7-6.0); RED CELL DISTRIBUTION WIDTH 21.6 % (11.6-16.5); WHITE BLOOD COUNT 7.9 X10^3/uL (3.6-10.0)
[2016-06-02 05:35] LABS: ALANINE AMINOTRANSFERASE 11 Units/L (12-78); ALBUMIN 1.5 g/dL (3.4-5.0); ALKALINE PHOSPHATASE 163 Units/L (46-116); ASPARTATE AMINO TRANSFERASE 17 Units/L (15-37); BLOOD UREA NITROGEN 38 mg/dL (7-18); CARBON DIOXIDE 19.4 mmol/L (21-32); CHLORIDE 105 mmol/L (98-107); GLUCOSE 98 mg/dL (65-99); SODIUM 133 mmol/L (136-145); TOTAL PROTEIN 4.6 g/dL (6.4-8.2); eGFR BLACK RACES 41 (>60); eGFR NON BLACK RACES 34 (>60)
[2016-06-02 05:50] LABS: ANISOCYTOSIS 1+; PLATELET MORPHOLOGY COMMENT NORMAL (NORMAL)
[2016-06-02] MEDS: BUTT CREAM (COMPOUND) TOP SCH ×3 (06:07→22:58)
--- NOTE | 2016-06-02 07:08 | RAD ---
HISTORY: Shortness of breath Study: Chest one view Comparison: May 30, 2016 Findings: There is a right-sided port present. The heart is within normal limits in size. The alexandra are normal. The lungs are hypoinflated but free of acute alveolar infiltrates. No pleural effusions are identif ied. The right hemidiaphragm is elevated. The previously noted basilar lung nodules are not definite ly identified on this examination. IMPRESSION: Lungs hypoinflated but free of acute infiltrates Chronically elevated right hemidiaphragm Reported By:
[2016-06-02] MEDS: TIMOPTIC 0.5% EYE DROPS EACHEYE SCH (08:58)
[2016-06-02] MEDS: NS 1000 ML 1,000 ML IV PRN (08:58)
[2016-06-02] MEDS: CHRONULAC PO SCH (08:58)
[2016-06-02] MEDS: NYSTATIN POWDER TOP SCH ×2 (08:59→20:53)
[2016-06-02] MEDS: PHENERGAN INJ 25 MG IVP PRN (11:30)
--- NOTE | 2016-06-02 18:40 | PCM.PROG ---
Progress Note - Progress Note for Day of Date: 06/02/16 - Subjective Subjective: The patient is a 65-year-old white male who was admitted to be [facility] a 05/22/2016 secondary to intractable nausea and vomiting, profound dehydration with acute renal failure and hyperkalemia. Patient states that his symptoms have minimally improved since admission. Patient continues to complain of severe nausea which has minimally improved. Should be noted that the patient has metastatic prostate cancer, and end-stage metastatic colorectal cancer which has been determined to be terminal with no further treatment recommended. Pt continues with hyponatremia, will continue IV hydration and symptomatic management. Pt has had severe set back last 24-48 hrs with intractable nausea and vomiting. Pt asking to be transferred to PCP at [facility] in [place] for continuation of care, pt is too weak for going home by private vehicle. Plan to continue nausea control and iv hydration, will obtain information for possible transfer. - Past Medical Family Social History Past Med/Fam/Surg Hx: No changes since H&P Allergies: Allergies Hydralazine Allergy (Verified 05/22/16 12:43) Penicillins Allergy (Verified 05/22/16 12:43) - Review of Systems ROS: No change since H&P - Vital Signs and I&O's Vital Signs: Temperature 97.4 F Pulse Rate [Right Brachial] 93 Pulse Rate [Left] 91 Respiratory Rate 18 Blood Pressure [Right Arm] 103/70 Blood Pressure [Left Arm] 128/81 O2 Sat by Pulse Oximetry 92 Intake and Output: Intake & Output 05/31/16 06/01/16 06/02/16 06/03/16 11:59 11:59 11:59 11:59 Intake Total 1999 1240 1430 360 Output Total 300 100 Balance 1700 1140 1430 360 - Physical Exam Oriented: Normal Eyes: Normal Ear: Normal Nose: Normal Throat: Normal Respiratory: Diminished Cardiovascular: Normal : Normal Auscultation: Bowel Sounds: Normal Tenderness: Diffuse Skin: Decreased Turgur Musculoskeletal: Leg Psychiatric: Depression Mood Description: Withdrawn Affect: Flat Speech Pattern: Clear, Appropriate - Laboratory and Diagnostics Result Diagrams: 06/02/16 04:55 06/02/16 04:55 Labs: 05/23/16 10:44 Peritoneal Fluid - Final 05/23/16 10:44 Peritoneal Fluid Gram Stain - Final Laboratory WBC 7.9 X10^3/uL (3.6-10.0) 06/02/16 04:55 RBC 3.14 X10^6/uL (4.7-6.0) L 06/02/16 04:55 Hgb 9.6 g/dL (13.5-18.0) L 06/02/16 04:55 Hct 28.9 % (42.0-54.0) L 06/02/16 04:55 MCV 92.0 fL (80.0-100.0) 06/02/16 04:55 MCH 30.8 pg (27.0-34.0) 06/02/16 04:55 MCHC 33.4 g/dL (33.0-35.0) 06/02/16 04:55 RDW 21.6 % (11.6-16.5) H 06/02/16 04:55 Plt Count 187 X10^3/uL (150.0-450.0) 06/02/16 04:55 Plt Count Comment Adequate (ADEQUATE) 06/02/16 04:55 MPV 8.1 fL (7.4-11.0) 06/02/16 04:55 Neut % 72.8 % (42.0-75.0) 06/02/16 04:55 Lymph % 19.5 % (21.0-51.0) L 06/02/16 04:55 [place] % 5.8 % (0.0-13.0) 06/02/16 04:55 Eos % 1.7 % (0.9-2.9) 06/02/16 04:55 Baso % 0.2 % (0.2-1.0) 06/02/16 04:55 Neut # 5.8 x10^3/uL (2.2-4.8) H 06/02/16 04:55 Lymph # 1.5 X10^3/uL (1.3-2.9) 06/02/16 04:55 [place] # 0.5 x10^3/uL (0.3-0.8) 06/02/16 04:55 Eos # 0.1 x10^3/uL (0.0-0.2) 06/02/16 04:55 Baso # 0.0 X10^3/uL (0.0-0.1) 06/02/16 04:55 Absolute Nucleated RBC 0.1 /100WBC 06/02/16 04:55 Plt Morphology Comment Normal (NORMAL) 06/02/16 04:55 RBC Morphology Abnormal (NORMAL) 06/02/16 04:55 Anisocytosis 1+ A 06/02/16 04:55 Sample Site Cancelled 05/26/16 16:44 ABG pH Cancelled 05/26/16 16:44 ABG pCO2 Cancelled 05/26/16 16:44 ABG pO2 Cancelled 05/26/16 16:44 ABG HCO3 Cancelled 05/26/16 16:44 ABG O2 Saturation Cancelled 05/26/16 16:44 ABG Base Excess Cancelled 05/26/16 16:44 Reginald Test Cancelled 05/26/16 16:44 A-a Gradient Cancelled 05/26/16 16:44 FiO2 Cancelled 05/26/16 16:44 Blood Gas Comments Cancelled 05/26/16 16:44 Sodium 133 mmol/L (136-145) L 06/02/16 04:55 Corrected Sodium TNP 06/02/16 04:55 Potassium 5.9 mmol/L (3.5-5.1) H 06/02/16 04:55 Chloride 105 mmol/L (98-107) 06/02/16 04:55 Carbon Dioxide 19.4 mmol/L (21-32) L 06/02/16 04:55 BUN 38 mg/dL (7-18) H 06/02/16 04:55 Creatinine 2.10 mg/dL (0.70-1.30) H 06/02/16 04:55 Est GFR (MDRD) Af Amer 41 (>60) L 06/02/16 04:55 Est GFR (MDRD) Non-Af 34 (>60) L 06/02/16 04:55 Glucose 98 mg/dL (65-99) 06/02/16 04:55 Calcium 8.0 mg/dL (8.5-10.1) L 06/02/16 04:55 Corrected Calcium 10.0 mg/dL (8.5-10.1) 06/02/16 04:55 Total Bilirubin 0.20 mg/dL (0.2-1.0) 06/02/16 04:55 AST 17 Units/L (15-37) 06/02/16 04:55 ALT 11 Units/L (12-78) L 06/02/16 04:55 Alkaline Phosphatase 163 Units/L (46-116) H 06/02/16 04:55 Total Protein 4.6 g/dL (6.4-8.2) L 06/02/16 04:55 Albumin 1.5 g/dL (3.4-5.0) L 06/02/16 04:55 Globulin 3.1 g/dL (2.5-4.5) 06/02/16 04:55 Albumin/Globulin Ratio 0.5 Ratio (1.1-2.1) L 06/02/16 04:55 - Plan (1) ARF (acute renal failure) Status: Acute Qualifiers: Acute renal failure type: unspecified Qualified Code(s): N17.9 - Acute kidney failure, unspecified Plan: 1. CMP and CBC q am. 2. Advance diet as tolerated. 3. Aggressive IV fluid hydration. 4. Continue current IV antibiotics. 5. Continue daily paracentesis drainage as per home regimen. 6. Continue home medications (2) Ascites Status: Acute Qualifiers: Ascites type: A Plan: Continue daily paracentesis drainage as per home regimen (3) Dehydration Status: Acute Plan: As above. (4) Metastatic colorectal cancer Status: Chronic Plan: As above. 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
[2016-06-02] MEDS: PHENERGAN INJ 25 MG IV PRN (20:44)
[2016-06-02] MEDS: MIRALAX POWDER (1 DOSE 17GM) PO SCH ×2 (20:53→20:55)
[2016-06-03 02:26] LABS: GASTRIC OCCULT BLOOD NEGATIVE (NEGATIVE); PH 3
[2016-06-03] MEDS: PHENERGAN INJ 25 MG IV PRN ×4 (02:48→20:26)
[2016-06-03] MEDS: ZOFRAN INJ 4 MG VIAL IVP PRN (04:00)
[2016-06-03] MEDS: BUTT CREAM (COMPOUND) TOP SCH ×3 (05:02→23:59)
[2016-06-03] MEDS: PROTONIX INJ 40 MG VIAL IVP SCH (09:18)
[2016-06-03] MEDS: TIMOPTIC 0.5% EYE DROPS EACHEYE SCH (09:18)
[2016-06-03] MEDS: CHRONULAC PO SCH (09:18)
[2016-06-03] MEDS: NEURONTIN CAP 300 MG PO SCH ×3 (09:20→23:59)
[2016-06-03] MEDS: NYSTATIN POWDER TOP SCH ×2 (09:20→23:59)
--- NOTE | 2016-06-03 18:08 | PCM.PROG ---
Progress Note - Progress Note for Day of Date: 06/03/16 - Subjective Subjective: The patient is a 65-year-old white male who was admitted to be [facility] a 05/22/2016 secondary to intractable nausea and vomiting, profound dehydration with acute renal failure and hyperkalemia. Patient states that his symptoms have minimally improved since admission. Patient continues to complain of severe nausea which has minimally improved. Should be noted that the patient has metastatic prostate cancer, and end-stage metastatic colorectal cancer which has been determined to be terminal with no further treatment recommended. Pt continues with hyponatremia, will continue IV hydration and symptomatic management. Pt has had severe set back last 24-48 hrs with intractable nausea and vomiting. Pt asking to be transferred to PCP at [place] in [place] for continuation of care, pt is too weak for going home by private vehicle. Plan to continue nausea control and iv hydration, will obtain information for possible transfer. - Past Medical Family Social History Past Med/Fam/Surg Hx: No changes since H&P Allergies: Allergies Hydralazine Allergy (Verified 05/22/16 12:43) Penicillins Allergy (Verified 05/22/16 12:43) - Review of Systems ROS: No change since H&P - Vital Signs and I&O's Vital Signs: Temperature 97.9 F Pulse Rate [Right Brachial] 95 Pulse Rate [Left] 92 Respiratory Rate 18 Blood Pressure [Right Arm] 109/71 Blood Pressure [Left Arm] 144/78 O2 Sat by Pulse Oximetry 91 Intake and Output: Intake & Output 06/01/16 06/02/16 06/03/16 06/04/16 11:59 11:59 11:59 11:59 Intake Total 1240 1430 1442 0 Output Total 100 Balance 1140 1430 1442 0 - Physical Exam Oriented: Normal Eyes: Normal Ear: Normal Nose: Normal Throat: Normal Respiratory: Diminished Cardiovascular: Normal : Normal Auscultation: Bowel Sounds: Normal Tenderness: Diffuse Skin: Decreased Turgur Musculoskeletal: Leg Psychiatric: Depression Mood Description: Withdrawn Affect: Flat Speech Pattern: Clear, Appropriate - Laboratory and Diagnostics Result Diagrams: 06/02/16 04:55 06/02/16 04:55 Labs: 05/23/16 10:44 Peritoneal Fluid - Final 05/23/16 10:44 Peritoneal Fluid Gram Stain - Final Laboratory WBC 7.9 X10^3/uL (3.6-10.0) 06/02/16 04:55 RBC 3.14 X10^6/uL (4.7-6.0) L 06/02/16 04:55 Hgb 9.6 g/dL (13.5-18.0) L 06/02/16 04:55 Hct 28.9 % (42.0-54.0) L 06/02/16 04:55 MCV 92.0 fL (80.0-100.0) 06/02/16 04:55 MCH 30.8 pg (27.0-34.0) 06/02/16 04:55 MCHC 33.4 g/dL (33.0-35.0) 06/02/16 04:55 RDW 21.6 % (11.6-16.5) H 06/02/16 04:55 Plt Count 187 X10^3/uL (150.0-450.0) 06/02/16 04:55 Plt Count Comment Adequate (ADEQUATE) 06/02/16 04:55 MPV 8.1 fL (7.4-11.0) 06/02/16 04:55 Neut % 72.8 % (42.0-75.0) 06/02/16 04:55 Lymph % 19.5 % (21.0-51.0) L 06/02/16 04:55 Door % 5.8 % (0.0-13.0) 06/02/16 04:55 Eos % 1.7 % (0.9-2.9) 06/02/16 04:55 Baso % 0.2 % (0.2-1.0) 06/02/16 04:55 Neut # 5.8 x10^3/uL (2.2-4.8) H 06/02/16 04:55 Lymph # 1.5 X10^3/uL (1.3-2.9) 06/02/16 04:55 Door # 0.5 x10^3/uL (0.3-0.8) 06/02/16 04:55 Eos # 0.1 x10^3/uL (0.0-0.2) 06/02/16 04:55 Baso # 0.0 X10^3/uL (0.0-0.1) 06/02/16 04:55 Absolute Nucleated RBC 0.1 /100WBC 06/02/16 04:55 Plt Morphology Comment Normal (NORMAL) 06/02/16 04:55 RBC Morphology Abnormal (NORMAL) 06/02/16 04:55 Anisocytosis 1+ A 06/02/16 04:55 Sample Site Cancelled 05/26/16 16:44 ABG pH Cancelled 05/26/16 16:44 ABG pCO2 Cancelled 05/26/16 16:44 ABG pO2 Cancelled 05/26/16 16:44 ABG HCO3 Cancelled 05/26/16 16:44 ABG O2 Saturation Cancelled 05/26/16 16:44 ABG Base Excess Cancelled 05/26/16 16:44 Reginald Test Cancelled 05/26/16 16:44 A-a Gradient Cancelled 05/26/16 16:44 FiO2 Cancelled 05/26/16 16:44 Blood Gas Comments Cancelled 05/26/16 16:44 Sodium 133 mmol/L (136-145) L 06/02/16 04:55 Corrected Sodium TNP 06/02/16 04:55 Potassium 5.9 mmol/L (3.5-5.1) H 06/02/16 04:55 Chloride 105 mmol/L (98-107) 06/02/16 04:55 Carbon Dioxide 19.4 mmol/L (21-32) L 06/02/16 04:55 BUN 38 mg/dL (7-18) H 06/02/16 04:55 Creatinine 2.10 mg/dL (0.70-1.30) H 06/02/16 04:55 Est GFR (MDRD) Af Amer 41 (>60) L 06/02/16 04:55 Est GFR (MDRD) Non-Af 34 (>60) L 06/02/16 04:55 Glucose 98 mg/dL (65-99) 06/02/16 04:55 Calcium 8.0 mg/dL (8.5-10.1) L 06/02/16 04:55 Corrected Calcium 10.0 mg/dL (8.5-10.1) 06/02/16 04:55 Total Bilirubin 0.20 mg/dL (0.2-1.0) 06/02/16 04:55 AST 17 Units/L (15-37) 06/02/16 04:55 ALT 11 Units/L (12-78) L 06/02/16 04:55 Alkaline Phosphatase 163 Units/L (46-116) H 06/02/16 04:55 Total Protein 4.6 g/dL (6.4-8.2) L 06/02/16 04:55 Albumin 1.5 g/dL (3.4-5.0) L 06/02/16 04:55 Globulin 3.1 g/dL (2.5-4.5) 06/02/16 04:55 Albumin/Globulin Ratio 0.5 Ratio (1.1-2.1) L 06/02/16 04:55 Gastric Occult Blood Negative (NEGATIVE) 06/03/16 02:01 Stool pH 3 06/03/16 02:01 - Plan (1) ARF (acute renal failure) Status: Acute Qualifiers: Acute renal failure type: unspecified Qualified Code(s): N17.9 - Acute kidney failure, unspecified Plan: 1. CMP and CBC q am. 2. Advance diet as tolerated. 3. Aggressive IV fluid hydration. 4. Continue current IV antibiotics. 5. Continue daily paracentesis drainage as per home regimen. 6. Continue home medications (2) Ascites Status: Acute Qualifiers: Ascites type: A Plan: Continue daily paracentesis drainage as per home regimen (3) Dehydration Status: Acute Plan: As above. (4) Metastatic colorectal cancer Status: Chronic Plan: As above. 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 PT REQUESTING TRANSFER THE [facility] TO PCP. DR GODOY CONTACTING PT'S ONCOLOGIST
[2016-06-03] MEDS: MIRALAX POWDER (1 DOSE 17GM) PO SCH (20:20)
[2016-06-03] MEDS: NS 1000 ML 1,000 ML IV PRN (20:29)
[2016-06-04] MEDS: BUTT CREAM (COMPOUND) TOP SCH (06:18)
[2016-06-04] MEDS: PHENERGAN INJ 25 MG IV PRN (06:29)
[2016-06-04] MEDS: CHRONULAC PO SCH (08:58)
[2016-06-04] MEDS: NEURONTIN CAP 300 MG PO SCH (08:58)
[2016-06-04] MEDS: ZOFRAN INJ 4 MG VIAL IVP PRN (09:03)
[2016-06-04] MEDS: PROTONIX INJ 40 MG VIAL IVP SCH (09:03)
[2016-06-04] MEDS: TIMOPTIC 0.5% EYE DROPS EACHEYE SCH (09:04)
[2016-06-04] MEDS: NYSTATIN POWDER TOP SCH (09:04)
[2016-06-04] MEDS ORDERED: ZOFRAN INJ 4 MG VIAL IVP PRN (09:33)
[2016-06-04] MEDS ORDERED: MORPHINE SULFATE INJ 2 MG IVP PRN (09:44)
[2016-06-04] MEDS: NS 1000 ML 1,000 ML IV PRN (10:04)
[2016-06-04 10:17] VITALS: BP 130/84
--- NOTE | 2016-06-05 13:18 | PCM.DCPLAN ---
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 (6) Gastroenteritis Status: Inactive (7) Hyperlipidemia Status: Chronic (8) Hypertension Status: Chronic (9) Adult failure to thrive Status: Acute - Discharge Diagnoses Discharge Diagnosis: same as admission - Discharge Medications Discharge Medications: Timolol Maleate (Ophth) 0.5 % [TIMOPTIC 0.5 % (OPHTH) GENERIC *] 1 drop OP DAILY 05/26/16 [History] - Hospital Course Vital Signs: Temperature 97.7 F Pulse Rate [Right Brachial] 95 Pulse Rate [Left] 99 Respiratory Rate 16 Blood Pressure [Right Arm] 130/84 Blood Pressure [Left Arm] 115/75 O2 Sat by Pulse Oximetry 99 Latest Lab Results: Laboratory Last Values WBC 7.9 X10^3/uL (3.6-10.0) 06/02/16 04:55 RBC 3.14 X10^6/uL (4.7-6.0) L 06/02/16 04:55 Hgb 9.6 g/dL (13.5-18.0) L 06/02/16 04:55 Hct 28.9 % (42.0-54.0) L 06/02/16 04:55 MCV 92.0 fL (80.0-100.0) 06/02/16 04:55 MCH 30.8 pg (27.0-34.0) 06/02/16 04:55 MCHC 33.4 g/dL (33.0-35.0) 06/02/16 04:55 RDW 21.6 % (11.6-16.5) H 06/02/16 04:55 Plt Count 187 X10^3/uL (150.0-450.0) 06/02/16 04:55 Plt Count Comment Adequate (ADEQUATE) 06/02/16 04:55 MPV 8.1 fL (7.4-11.0) 06/02/16 04:55 Neut % 72.8 % (42.0-75.0) 06/02/16 04:55 Lymph % 19.5 % (21.0-51.0) L 06/02/16 04:55 Hall % 5.8 % (0.0-13.0) 06/02/16 04:55 Eos % 1.7 % (0.9-2.9) 06/02/16 04:55 Baso % 0.2 % (0.2-1.0) 06/02/16 04:55 Neut # 5.8 x10^3/uL (2.2-4.8) H 06/02/16 04:55 Lymph # 1.5 X10^3/uL (1.3-2.9) 06/02/16 04:55 Hall # 0.5 x10^3/uL (0.3-0.8) 06/02/16 04:55 Eos # 0.1 x10^3/uL (0.0-0.2) 06/02/16 04:55 Baso # 0.0 X10^3/uL (0.0-0.1) 06/02/16 04:55 Absolute Nucleated RBC 0.1 /100WBC 06/02/16 04:55 Plt Morphology Comment Normal (NORMAL) 06/02/16 04:55 RBC Morphology Abnormal (NORMAL) 06/02/16 04:55 Anisocytosis 1+ A 06/02/16 04:55 Sample Site Cancelled 05/26/16 16:44 ABG pH Cancelled 05/26/16 16:44 ABG pCO2 Cancelled 05/26/16 16:44 ABG pO2 Cancelled 05/26/16 16:44 ABG HCO3 Cancelled 05/26/16 16:44 ABG O2 Saturation Cancelled 05/26/16 16:44 ABG Base Excess Cancelled 05/26/16 16:44 Reginald Test Cancelled 05/26/16 16:44 A-a Gradient Cancelled 05/26/16 16:44 FiO2 Cancelled 05/26/16 16:44 Blood Gas Comments Cancelled 05/26/16 16:44 Sodium 133 mmol/L (136-145) L 06/02/16 04:55 Corrected Sodium TNP 06/02/16 04:55 Potassium 5.9 mmol/L (3.5-5.1) H 06/02/16 04:55 Chloride 105 mmol/L (98-107) 06/02/16 04:55 Carbon Dioxide 19.4 mmol/L (21-32) L 06/02/16 04:55 BUN 38 mg/dL (7-18) H 06/02/16 04:55 Creatinine 2.10 mg/dL (0.70-1.30) H 06/02/16 04:55 Est GFR (MDRD) Af Amer 41 (>60) L 06/02/16 04:55 Est GFR (MDRD) Non-Af 34 (>60) L 06/02/16 04:55 Glucose 98 mg/dL (65-99) 06/02/16 04:55 Calcium 8.0 mg/dL (8.5-10.1) L 06/02/16 04:55 Corrected Calcium 10.0 mg/dL (8.5-10.1) 06/02/16 04:55 Total Bilirubin 0.20 mg/dL (0.2-1.0) 06/02/16 04:55 AST 17 Units/L (15-37) 06/02/16 04:55 ALT 11 Units/L (12-78) L 06/02/16 04:55 Alkaline Phosphatase 163 Units/L (46-116) H 06/02/16 04:55 Total Protein 4.6 g/dL (6.4-8.2) L 06/02/16 04:55 Albumin 1.5 g/dL (3.4-5.0) L 06/02/16 04:55 Globulin 3.1 g/dL (2.5-4.5) 06/02/16 04:55 Albumin/Globulin Ratio 0.5 Ratio (1.1-2.1) L 06/02/16 04:55 Gastric Occult Blood Negative (NEGATIVE) 06/03/16 02:01 Stool pH 3 06/03/16 02:01 Hospital Course: The patient is a 65-year-old white male who presented to the [facility] emergency room complaining of marked generalized weakness and intractable nausea and vomiting. Patient has a history of metastatic prostate cancer as well as metastatic colorectal cancer. The patient's clinical status has been markedly declining over the last several weeks. Patient has previously completed chemotherapy and states that his oncology physicians have told him that there was no further treatments for his condition and that he is considered to be terminal. The patient just got back from a cruise which she attempted to go on with family members and apparently was getting very sick even before departure and reportedly stayed in his cabin with very little by mouth intake throughout the cruise. The patient was noted to have a markedly elevated BUN/creatinine as well as hyperkalemia. 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 Patient's subsequent been admitted for further workup. after several days of IV hydration, and nausea control and pain control patient's condition slightly improved. Patient' s diet was advanced to regular which she tolerated for approximately 24 hours and again regressed with nausea and vomiting. While inpatient side we discussed end-of-life care with hospice for patient with both patient and family which he refuses at this time. Patient stated he wanted to return to home in [place] when his condition was stable for him to make the trip by private vehicle. After several days patient's condition did not improve and he continued to decline. Patient however was able to request for discharge for him to go by private vehicle to [facility] to his primary care provider. Upon discharge patient continued with hyponatremia and electrolyte balance. Dr. eDl Rosario did discuss patient's diagnostic findings and laboratory tests the patient's primary care at [place] in [place]. Patient was discharged on morning to return home per his wishes via private vehicle to follow up immediately with his primary care. - Discharge Plan Disposition: HOME, SELF-CARE Condition: Stable - Follow ups/Referrals Follow ups/Referrals: NFD,None [Primary Care Provider] - 3 days - Instructions Instructions: Prostate Cancer, [id number], End-of-Life Care, Hospice, About Your Loved One's Last Days, Dehydration, Adult, Failure to Thrive, Adult Forms: Patient Portal
== END 2016-06-04 09:55 | disposition home or self-care (01) | DRG 683 ==
LOC: ER 13:17 → MED/SURG 15:52
PROVIDERS: ADMIT Internal Medicine; ATTEND Internal Medicine
DX: N17.8 Other acute kidney failure (principal); E86.0 Dehydration; C61 Malignant neoplasm of prostate; C78.5 Secondary malignant neoplasm of large intestine and rectum; C78.6 Secondary malignant neoplasm of retroperitoneum and peritoneum; R18.0 Malignant ascites; R11.2 Nausea with vomiting, unspecified; R53.1 Weakness; E78.2 Mixed hyperlipidemia; I10 Essential (primary) hypertension; E87.5 Hyperkalemia; R94.4 Abnormal results of kidney function studies; Z66 Do not resuscitate; K52.89 Other specified noninfective gastroenteritis and colitis; R62.7 Adult failure to thrive; Z92.21 Personal history of antineoplastic chemotherapy; R26.89 Other abnormalities of gait and mobility; N18.9 Chronic kidney disease, unspecified
CPT/HCPCS: 36415; 36591; 36600; 71010; 74000; 80048; 80053; 82271; 82803; 85025; 87070; 87075; 87205; 93005; 93010; 94760; 96365; 96374; 99221; 99231; 99284; A4222; C9113; J2175; J2405; J2550